=== PATIENT | female | born 1940 | race Caucasian/White ===

== ENCOUNTER 2017-07-10 10:47 | Emergency (ER) | payer MEDICARE, OTHER ==
[~2017-07-10] VITALS: Ht 162.6 cm; Wt 77.1 kg
[~2017-07-10 10:47] MED LIST: CIPROFLOXACIN250 MG PO; CITRACAL + D C1 EACH PO; MELOXICAM15 MG PO; MUCINEX600 MG PO; NAPROXEN250 MG PO; NORCO 5-325 TA1 EACH PO; PERCOCET 5-3251 EACH PO; VITAMIN D5000 UNIT PO
[2017-07-10] MEDS ORDERED: ZITHROMAX250 MG PO (10:59)
[2017-07-10] MEDS ORDERED: VENTOLIN HFA18 GM INH (12:53)
[2017-07-10] MEDS ORDERED: PREDNISONE20 MG PO (12:53)
== END 2017-07-10 17:40 | disposition home or self-care (01) ==
LOC: ED 10:47
DX: J44.1 Chronic obstructive pulmonary disease with (acute) exacerbation (principal); J44.0 Chronic obstructive pulmonary disease with (acute) lower respiratory infection; J20.9 Acute bronchitis, unspecified; E11.9 Type 2 diabetes mellitus without complications; F17.200 Nicotine dependence, unspecified, uncomplicated; Z90.710 Acquired absence of both cervix and uterus; Z90.89 Acquired absence of other organs; Z88.2 Allergy status to sulfonamides; Z88.5 Allergy status to narcotic agent
CPT/HCPCS: 71020; 94640; 99284; J7512

== ENCOUNTER 2021-12-28 14:59 | Emergency (ER) | payer MEDICARE, OTHER ==
[~2021-12-28] VITALS: Ht 162.6 cm; Wt 77.1 kg
[~2021-12-28 14:59] MED LIST changes: +PREDNISONE20 MG PO; +VENTOLIN HFA18 GM INH; +ZITHROMAX250 MG PO
[2021-12-28] MEDS ORDERED: HYDROCODON-ACE1 EA10 PO (17:52)
[2021-12-28] MEDS ORDERED: ONDANSETRON ODT8 MG PO (18:00)
== END 2021-12-28 18:14 | disposition home or self-care (01) ==
LOC: ED 14:59
DX: S42.201A Unspecified fracture of upper end of right humerus, initial encounter for closed fracture (principal); E11.9 Type 2 diabetes mellitus without complications; M19.90 Unspecified osteoarthritis, unspecified site; M81.0 Age-related osteoporosis without current pathological fracture; J44.9 Chronic obstructive pulmonary disease, unspecified; F17.200 Nicotine dependence, unspecified, uncomplicated; Z88.2 Allergy status to sulfonamides; Z88.5 Allergy status to narcotic agent; Z88.8 Allergy status to other drugs, medicaments and biological substances; W18.30XA Fall on same level, unspecified, initial encounter
CPT/HCPCS: 73060; 73080; 96374; 99283-25; A9270; J3010

== ENCOUNTER 2023-05-05 19:26 | Emergency (ER) | payer MEDICARE, OTHER ==
[~2023-05-05] VITALS: Ht 162.6 cm; Wt 88.0 kg
[~2023-05-05 19:26] MED LIST changes: +AMOXICILLIN875 MG PO; +ASPIR-TRIN325 MG PO; +DOXYCYCLINE HY100 MG PO; +HYDROCODON-ACE1 EA10 PO; +JARDIANCE10 MG PO; +METHOCARBAMOL500 MG PO; +MULTI VITAMIN1 EACH PO; +ONDANSETRON ODT8 MG PO; +TRAMADOL HCL50 MG PO; +TYLENOL325 M1 PO
--- OUTSIDE RECORDS SUMMARY | 2023-05-05 19:28 | XMS ---
PreManage Notification: FABIAN RIOS Security Real Estate Administrator Events No recent Security Events currently on file CRITERIA MET - [place] - [facility] - 2 Visits in 30 Days CARE PROVIDERS -Ayo- Dentist: Information Systems Manager [facility] PHONE: [phone] Lu Ritter Jewel Hole Gauger/Workforce Planning Analyst 01/08/2023-Current PHONE: [phone] Basilio has no Care Guidelines for this patient. ERosie VISIT COUNT (12 MO.) [address] [place] [address] TOTAL 3 NOTE: Visits indicate total known visits. ED/UCC VISIT TRACKING (12 MO.) 05/05/2023 19:26 [facility] [place] TYPE: Emergency COMPLAINT: - WEAKNESS 04/28/2023 19:44 [facility] [place] TYPE: Emergency COMPLAINT: - BACK PAIN/ NO INJ DIAGNOSES: - Allergy status to narcotic agent - Allergy status to other drugs, medicaments and biological substances - Allergy status to sulfonamides - Chronic obstructive pulmonary disease, unspecified - Exposure to other specified factors, initial encounter - rodent exterminator (current) use of oral hypoglycemic drugs - Low back pain, unspecified - Nicotine dependence, unspecified, uncomplicated - Other medical terminologist (current) drug therapy - Strain of muscle, fascia and tendon of lower back, initial encounter - Type 2 diabetes mellitus without complications 04/07/2023 13:49 [facility] [place] TYPE: Emergency COMPLAINT: - SWOLLEN LEGS INPATIENT VISIT TRACKING (12 MO.) 04/07/2023 13:50 [facility] [place] TYPE: Observation COMPLAINT: - CELLULITIS DIAGNOSES: - Cellulitis of left lower limb - Cellulitis of right lower limb - Chronic obstructive pulmonary disease, unspecified - 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 - Non-pressure chronic ulcer of other part of right lower leg with unspecified severity - Other muscle spasm - Tobacco use - Type 2 diabetes mellitus without complications - 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
[2023-05-05 21:45] VITALS: BP 137/87
== END 2023-05-05 21:45 | disposition home or self-care (01) ==
LOC: ED 19:26
DX: M62.830 Muscle spasm of back (principal); G89.29 Other chronic pain; E11.9 Type 2 diabetes mellitus without complications; J44.9 Chronic obstructive pulmonary disease, unspecified; F17.200 Nicotine dependence, unspecified, uncomplicated; Z88.2 Allergy status to sulfonamides; Z88.5 Allergy status to narcotic agent; Z88.6 Allergy status to analgesic agent; Z79.84 Long term (current) use of oral hypoglycemic drugs; Z79.899 Other long term (current) drug therapy
CPT/HCPCS: 99283; A9270

== ENCOUNTER 2023-07-22 21:59 | Emergency (ER) | payer MEDICARE, OTHER ==
[~2023-07-22] VITALS: Ht 162.6 cm; Wt 88.0 kg
--- OUTSIDE RECORDS SUMMARY | 2023-07-22 22:01 | XMS ---
PreManage Notification: FABIAN RIOS Security Instrument Worker Events No recent Security Events currently on file CRITERIA MET - LEE CARE PROVIDERS Lu Ritter Human Service Coordinator/Mixing Plant Operator 01/08/2023-Current PHONE: [phone] -Ayo- Dentist: Industrial Hygienist [facility] PHONE: [phone] Basilio has no Care Guidelines for this patient. ERosie VISIT COUNT (12 MO.) Nidia Mckeon TOTAL 4 NOTE: Visits indicate total known visits. ED/UCC VISIT TRACKING (12 MO.) 07/22/2023 21:59 [facility] [place] TYPE: Emergency COMPLAINT: - DIFFICULTY BREATHING 05/05/2023 19:26 [facility] [place] TYPE: Emergency COMPLAINT: - WEAKNESS DIAGNOSES: - Allergy status to analgesic agent - Allergy status to narcotic agent - Allergy status to sulfonamides - Chronic obstructive pulmonary disease, unspecified - alf (current) use of oral hypoglycemic drugs - Low back pain, unspecified - Muscle spasm of back - Nicotine dependence, unspecified, uncomplicated - Other chronic pain - Other half-way (current) drug therapy - Type 2 diabetes mellitus without complications 04/28/2023 19:44 [facility] [place] TYPE: Emergency COMPLAINT: - BACK PAIN/ NO INJ DIAGNOSES: - Allergy status to narcotic agent - Allergy status to other drugs, medicaments and biological substances - Allergy status to sulfonamides - Chronic obstructive pulmonary disease, unspecified - Exposure to other specified factors, initial encounter - alf (current) use of oral hypoglycemic drugs - Low back pain, unspecified - Nicotine dependence, unspecified, uncomplicated - Other exterminator helper termite (current) drug therapy - Strain of muscle, [...] lower extremity with ulcer of unspecified site [email or web address]
[2023-07-22 22:17] LABS: PH, VENOUS 7.325 (7.31-7.41)
[2023-07-22 22:32] LABS: BASOPHILS 0.1 % (0-2); EOSINOPHILS 0.1 % (0-6); HEMATOCRIT 61.7 % (35.0-50.0); LYMPHOCYTES 5.7 % (24-44); MCH 31.5 (27-36); MCV 95.4 fl (81-99); MONOCYTES 4.9 % (0-12); NEUTROPHILS 89.2 % (39-80); PLATELET COUNT 115 K/uL (140-440); RBC 6.46 M/ul (4.3-5.7); RDW 15.3 (10.5-15.0)
[2023-07-22 23:01] LABS: ALBUMIN 3.5 g/dL (3.4-5.0); ALBUMIN/GLOBULIN RATIO 0.83 (1.1-2.4); ANION GAP 18.4 (7-21); BILIRUBIN, TOTAL 0.6 ng/dL (0.2-1.0); BUN/CREATININE RATIO 22.03 (6.0-28.6); CREATININE, SERUM 1.18 mg/dL (0.55-1.02); MAGNESIUM 2.2 mg/dL (1.8-2.4); POTASSIUM 4.4 mmol/L (3.5-5.1); PROTEIN, TOTAL 7.7 g/dL (6.4-8.2)
[2023-07-22 23:04] LABS: HEMOGLOBIN 20.3 g/dL (12.0-18.0)
[2023-07-22 23:16] LABS: INFLUENZA B NAA NEGATIVE (NEGATIVE); RESPIRATORY SYNCYTIAL VIR NAA NEGATIVE (NEGATIVE)
[2023-07-23 00:29] LABS: LACTIC ACID, BLOOD 2.6 mmol/L (0.4-2.0)
[2023-07-23 02:51] VITALS: BP 122/80
--- NOTE | 2023-07-23 06:03 | EKG ---
[facility] [address] [facility] [place] [address] Signed Sinus tachycardia Right bundle branch block Left posterior fascicular block Bifascicular block Cannot rule out Inferior infarct , age undetermined Abnormal ECG compared to 04/07/23, rbbb and lpfb now present Confirmed by HARDY RIZVI MD ([id number]) on 07/23/2023 6:03:00 AM Electronically Signed By: HARDY RIZVI 07/23/23 0603 PATIENT NAME: FABIAN RIOS rPiya Electrocardiogram DATE OF : 42 PHYSICIAN: HARDY RIZVI REPORT #: [id number] REPORT IS CONFIDENTIAL AND NOT TO BE RELEASED WITHOUT AUTHORIZATION
== END 2023-07-23 02:51 | disposition short-term general hospital (02) ==
LOC: ED 21:59
PROVIDERS: Emergency Medicine
DX: I26.92 Saddle embolus of pulmonary artery without acute cor pulmonale (principal); J44.9 Chronic obstructive pulmonary disease, unspecified; E11.9 Type 2 diabetes mellitus without complications; F17.200 Nicotine dependence, unspecified, uncomplicated; Z88.2 Allergy status to sulfonamides; Z88.5 Allergy status to narcotic agent; Z88.8 Allergy status to other drugs, medicaments and biological substances; Z79.899 Other long term (current) drug therapy; Z20.822 Contact with and (suspected) exposure to COVID-19; Z66 Do not resuscitate
CPT/HCPCS: 36415; 71045; 71260; 80053; 82803; 83605; 83735; 83880; 84484; 85025; 85060; 85379; 87502; 93005; 93010; 94644; 99285-25; J1650; J1956; J2930; Q9967; U0002

== ENCOUNTER 2023-09-10 17:06 | Emergency (ER) | payer MEDICARE, OTHER ==
[~2023-09-10] VITALS: Ht 162.6 cm; Wt 96.6 kg
[~2023-09-10 17:06] MED LIST changes: +ELIQUIS5 MG PO; +INCRUSE ELLI62.5 MCG INH; +SYMBICORT 16010.2 GM INH
--- OUTSIDE RECORDS SUMMARY | 2023-09-10 17:08 | XMS ---
PreManage Notification: FABIAN RIOS Security Foamite Mixer Events No recent Security Events currently on file CRITERIA MET - 6 ED Visits in 6 Months - [facility] CARE PROVIDERS Lu Ritter Dust Mill Operator/Health Care Manager 01/08/2023-Current PHONE: [phone] -, Ayo- Dentist: Sergeant Of Corrections [facility] PHONE: [phone] Basilio has no Care Guidelines for this patient. ERosie VISIT COUNT (12 MO.) [address] [address] [place] [address] TOTAL 7 NOTE: Visits indicate total known visits. ED/UCC VISIT TRACKING (12 MO.) 09/10/2023 17:06 [facility] [place] TYPE: Emergency COMPLAINT: - CHEST PAIN 08/03/2023 09:47 [facility] [place] TYPE: Emergency COMPLAINT: - CHEST PAIN, SOB DIAGNOSES: - Allergy status to narcotic agent - Allergy status to sulfonamides - Chest pain, unspecified - Chronic obstructive pulmonary disease, unspecified - middle or intermediate school principal (current) use of anticoagulants - Nicotine dependence, unspecified, uncomplicated - Other middle or intermediate school principal (current) drug therapy - Other pulmonary embolism without acute cor pulmonale - Pleurodynia - Type 2 diabetes mellitus without complications 07/23/2023 03:25 [facility] TYPE: Emergency DIAGNOSES: - Acute respiratory failure with hypoxia - Chest pain, unspecified - Chronic obstructive pulmonary disease with (acute) exacerbation - Do not resuscitate - Other acute kidney failure - Other forms of dyspnea - Other specified abnormal findings of blood chemistry - Saddle embolus of pulmonary artery with acute cor pulmonale - Saddle embolus of pulmonary artery without acute cor pulmonale - Secondary polycythemia - Thrombocytopenia, unspecified - Type 2 diabetes mellitus with hyperglycemia - Saddle PE - Shortness of Breath 07/22/2023 21:59 [facility] [place] TYPE: Emergency COMPLAINT: - DIFFICULTY BREATHING DIAGNOSES: - Allergy status to narcotic agent - Allergy status to other drugs, medicaments and biological substances - Allergy status to sulfonamides - Chronic obstructive pulmonary disease, unspecified - Contact with and (suspected) exposure to COVID-19 - Do not resuscitate - Nicotine dependence, unspecified, uncomplicated - Other half-way (current) drug therapy - Saddle embolus of pulmonary artery without acute cor pulmonale - Shortness of breath - Type 2 diabetes mellitus without complications 05/05/2023 19:26 [facility] [place] TYPE: Emergency COMPLAINT: - WEAKNESS DIAGNOSES: - Allergy status to analgesic agent - Allergy status to narcotic agent - Allergy status to sulfonamides - Chronic obstructive pulmonary disease, unspecified - middle or intermediate school principal (current) use of oral hypoglycemic drugs - [...] to other specified factors, initial encounter - middle or intermediate school principal (current) use of oral hypoglycemic drugs - Low back pain, unspecified - Nicotine dependence, unspecified, uncomplicated - Other half-way (current) drug therapy - Strain of muscle, fascia and tendon of lower back, initial encounter - Type 2 diabetes mellitus without complications 04/07/2023 13:49 [facility] [place] TYPE: Emergency COMPLAINT: - SWOLLEN LEGS INPATIENT VISIT TRACKING ( MO.) 07/23/2023 03:25 [facility] TYPE: Internal Medicine DIAGNOSES: - Acute respiratory failure with hypoxia - Chest pain, unspecified - Chronic obstructive pulmonary disease with (acute) exacerbation - Do not resuscitate - Other acute kidney failure - Other forms of dyspnea - Other specified abnormal findings of blood chemistry - Saddle embolus of pulmonary artery with acute cor pulmonale - Saddle embolus of pulmonary artery without acute cor pulmonale - Secondary polycythemia - Thrombocytopenia, unspecified - Type 2 diabetes mellitus with hyperglycemia 04/07/2023 13:50 [facility] TYPE: Observation COMPLAINT: - CELLULITIS DIAGNOSES: - [...] lower extremity with ulcer of unspecified site [email or web address]
[2023-09-10 18:35] LABS: BASOPHILS 0.6 % (0-2); HEMATOCRIT 49.2 % (35.0-50.0); HEMOGLOBIN 16.3 g/dL (12.0-18.0); LYMPHOCYTES 36.3 % (24-44); MCHC 33.2 g/dl (30-36); MCV 93.6 fl (81-99); MONOCYTES 5.8 % (0-12); NEUTROPHILS 56.3 % (39-80); PLATELET COUNT 192 K/uL (140-440); RBC 5.25 M/ul (4.3-5.7)
[2023-09-10 18:53] LABS: ALBUMIN 3.2 g/dL (3.4-5.0); ALBUMIN/GLOBULIN RATIO 0.89 (1.1-2.4); BILIRUBIN, TOTAL 0.3 ng/dL (0.2-1.0); BUN/CREATININE RATIO 16.39 (6.0-28.6); CALCIUM 8.8 mg/dL (8.5-10.1); CREATININE, SERUM 1.22 mg/dL (0.55-1.02); PROTEIN, TOTAL 6.8 g/dL (6.4-8.2)
[2023-09-10 20:38] VITALS: BP 106/87
--- NOTE | 2023-09-10 22:25 | EKG ---
[facility] [address] [facility] [place] [address] Signed Sinus tachycardia Right bundle branch block Abnormal ECG When compared with ECG of 03-AUG-2023 10:28, No significant change was found Confirmed by Arnulfo Ochoa MD () on 09/10/2023 10:25:36 PM Electronically Signed By: ARNULFO OCHOA MD 09/10/232224 PATIENT NAME: FABIAN RIOS Electrocardiogram DATE OF : 42 PHYSICIAN: ARNULFO OCHOA MD REPORT #: [id number] REPORT IS CONFIDENTIAL AND NOT TO BE RELEASED WITHOUT AUTHORIZATION
== END 2023-09-10 20:38 | disposition home or self-care (01) ==
LOC: ED 17:06
PROVIDERS: Emergency Medicine
DX: R07.89 Other chest pain (principal); J44.9 Chronic obstructive pulmonary disease, unspecified; E11.9 Type 2 diabetes mellitus without complications; F17.200 Nicotine dependence, unspecified, uncomplicated; Z88.2 Allergy status to sulfonamides; Z88.5 Allergy status to narcotic agent; Z88.8 Allergy status to other drugs, medicaments and biological substances; Z79.01 Long term (current) use of anticoagulants; Z79.899 Other long term (current) drug therapy
CPT/HCPCS: 36415; 71045; 80053; 84484; 85025; 85379; 93005; 93010

== ENCOUNTER 2023-10-22 00:57 | Emergency (ER) | payer MEDICARE, OTHER ==
[~2023-10-22] VITALS: Ht 162.6 cm; Wt 84.6 kg
--- NOTE | ~2023-10-22 | EKG ---
[facility] [address] [facility] [place], [place] [address] Draft EK completed, results pending confirmation PATIENT NAME: FABIAN RIOS Electrocardiogram DATE OF : 42 PHYSICIAN: PRELIMINARY REPORT #: [id number] REPORT IS CONFIDENTIAL AND NOT TO BE RELEASED WITHOUT AUTHORIZATION
--- OUTSIDE RECORDS SUMMARY | 2023-10-22 01:00 | XMS ---
PreManage Notification: FABIAN RIOS Security Estimator Project Manager Events No recent Security Events currently on file CRITERIA MET - 6 ED Visits in 6 Months - [facility] - 2 Visits in 30 Days CARE PROVIDERS Lu Ritter Derrick Barge Operator/Medical Assistant Dermatology 10/10/2023-Current PHONE: [phone] -Ayo- Dentist: Coding Assistant [facility] PHONE: [phone] [place] PRIMARY Clinic/Center: Primary [facility] PHONE: [phone] Basilio has no Care Guidelines for this patient. E.D. VISIT COUNT (12 MO.) 9 [facility] TOTAL 10 NOTE: Visits indicate total known visits. ED/UCC VISIT TRACKING (12 MO.) 10/22/2023 00:58 [facility] [place] TYPE: Emergency COMPLAINT: - BACK PAIN 10/19/2023 01:09 [facility] [place] TYPE: Emergency COMPLAINT: - SOB DIAGNOSES: - Allergy status to narcotic agent - Allergy status to other drugs, medicaments and biological substances - Allergy status to sulfonamides - Chronic obstructive pulmonary disease with (acute) exacerbation - Exposure to other specified factors, initial encounter - [facility] (current) use of anticoagulants - Nicotine dependence, unspecified, uncomplicated - Other correction (current) drug therapy - Shortness of breath - Strain of muscle, fascia and tendon of lower back, initial encounter - Type 2 diabetes mellitus without complications 10/18/2023 05:49 [facility] [place] TYPE: Emergency COMPLAINT: - SOB DIAGNOSES: - Allergy status to narcotic agent - Allergy status to sulfonamides - Chronic obstructive pulmonary disease, unspecified - Exposure to other specified factors, initial encounter - extermination inspector (current) use of anticoagulants - [facility] (current) use of oral hypoglycemic drugs - Nicotine dependence, unspecified, uncomplicated - Other correction (current) drug therapy - Shortness of breath - Sprain of ligaments of lumbar spine, initial encounter - Type 2 diabetes mellitus without complications 09/10/2023 17:06 [facility] TYPE: Emergency COMPLAINT: - CHEST PAIN DIAGNOSES: - Allergy status to narcotic agent - Allergy status to other drugs, medicaments and biological substances - Allergy status to sulfonamides - Chest pain, unspecified - Chronic obstructive pulmonary disease, unspecified - [facility] (current) use of anticoagulants - Nicotine dependence, unspecified, uncomplicated - Other chest pain - Other correction (current) drug therapy - Type 2 diabetes mellitus without complications 08/03/2023 09:47 [facility] [place] TYPE: Emergency COMPLAINT: - CHEST PAIN, SOB DIAGNOSES: - Allergy status to narcotic agent - Allergy status to sulfonamides - Chest pain, unspecified - Chronic obstructive pulmonary disease, unspecified - extermination inspector (current) use of anticoagulants - Nicotine dependence, unspecified, uncomplicated - Other exterminator termite (current) drug therapy - Other pulmonary embolism without acute cor pulmonale - Pleurodynia - Type 2 diabetes mellitus without complications 07/23/2023 03:25 [facility] TYPE: Emergency DIAGNOSES: - Acute respiratory [...] Nicotine dependence, unspecified, uncomplicated - Other exterminator termite (current) drug therapy - Saddle embolus of pulmonary artery without acute cor pulmonale - Shortness of breath - Type 2 diabetes mellitus without complications 05/05/2023 19:26 [facility] [place] TYPE: Emergency COMPLAINT: - WEAKNESS DIAGNOSES: - Allergy status to analgesic agent - Allergy status to narcotic agent - Allergy status to sulfonamides - Chronic obstructive pulmonary disease, unspecified - extermination inspector (current) use of oral hypoglycemic drugs - Low back pain, unspecified - Muscle spasm of back - Nicotine dependence, unspecified, uncomplicated - Other chronic pain - Other correction (current) drug therapy - Type 2 diabetes mellitus without complications 04/28/2023 19:44 [facility] [place] TYPE: Emergency COMPLAINT: - BACK PAIN/ NO INJ DIAGNOSES: - Allergy status to narcotic agent - Allergy status to other drugs, medicaments and biological substances - Allergy status to sulfonamides - Chronic obstructive pulmonary disease, unspecified - Exposure to other specified factors, initial encounter - extermination inspector (current) use of oral hypoglycemic drugs - Low back pain, unspecified - Nicotine dependence, unspecified, uncomplicated - Other correction (current) drug therapy - Strain of muscle, fascia and tendon of lower back, initial encounter - Type 2 diabetes mellitus without complications 04/07/2023 13:49 [facility] [place] TYPE: Emergency COMPLAINT: - SWOLLEN LEGS INPATIENT VISIT TRACKING (12 MO.) 07/23/2023 03:25 [facility] TYPE: Internal Medicine DIAGNOSES: - Acute [...] 2 diabetes mellitus with hyperglycemia 04/07/2023 13:[address] [facility] [place] TYPE: Observation COMPLAINT: - CELLULITIS DIAGNOSES: [...] lower extremity with ulcer of unspecified site [email or web address]
[2023-10-22] MEDS ORDERED: CALCITONIN-SAL3.7 ML NAS (05:53)
[2023-10-22] MEDS ORDERED: LIDODERM1 EACH TOP (05:55)
[2023-10-22] MEDS ORDERED: HYDROCODON-ACE1 EA10 PO (06:03)
[2023-10-22] MEDS ORDERED: TRAMADOL HCL50 MG PO (06:04)
[2023-10-22 07:20] VITALS: BP 131/94
== END 2023-10-22 07:03 | disposition home or self-care (01) ==
LOC: ED 00:57
DX: M48.56XA Collapsed vertebra, not elsewhere classified, lumbar region, initial encounter for fracture (principal); M43.8X4 Other specified deforming dorsopathies, thoracic region; E11.9 Type 2 diabetes mellitus without complications; J44.9 Chronic obstructive pulmonary disease, unspecified
CPT/HCPCS: 36415; 71045; 72128; 72131; 80053; 83880; 84484; 85025; 85379; 93005; 93010; 96374; 96375; 99284-25; A9270; J1170; J1885; J2405

== ENCOUNTER 2024-03-08 15:30 | Emergency (ER) | payer MEDICARE, OTHER ==
[~2024-03-08] VITALS: Ht 162.6 cm; Wt 95.4 kg
[~2024-03-08 15:30] MED LIST changes: +CALCITONIN-SAL3.7 ML NAS; +IPRAT-ALBUT 0.5-3 ML INH; +LIDODERM1 EACH TOP
--- OUTSIDE RECORDS SUMMARY | 2024-03-08 15:33 | XMS ---
PreManage Notification: FABIAN RIOS Security R And D Lab Technician Events No recent Security Events currently on file CRITERIA MET - 6 ED Visits in 6 Months - [facility] - [facility] - 2 Visits in 30 Days CARE PROVIDERS Lu Ritter Ecotherapist/Z Os Mainframe Systems Programmer 02/08/2024-Current PHONE: [phone] -, [facility] Dentist: National Sales Consultant Current [place] PHONE: [phone] -Ayo- Dentist: National Sales Consultant Current [facility] PHONE: [phone] [facility] PRIMARY Clinic/Center: Primary Care [facility] PHONE: [phone] Basilio has no Care Guidelines for this patient. Annie VISIT COUNT (12 MO.) 11 BRANDI [facility]ter [facility] TOTAL 12 NOTE: Visits indicate total known visits. ED/UCC VISIT TRACKING (12 MO.) 03/08/2024 15:30 [facility] [place] TYPE: Emergency COMPLAINT: - DIZZNESS 02/26/2024 13:46 [facility] [place] TYPE: Emergency COMPLAINT: - SOB DIAGNOSES: - Age-related osteoporosis without current pathological fracture - Allergy status to analgesic agent - Allergy status to sulfonamides - Chronic obstructive pulmonary disease with (acute) exacerbation - watermelon inspector (current) use of anticoagulants - care home (current) use of inhaled steroids - watermelon inspector (current) use of oral hypoglycemic drugs - Nicotine dependence, unspecified, uncomplicated - Shortness of breath - Type 2 diabetes mellitus without complications - Unspecified osteoarthritis, unspecified site 10/22/2023 00:58 [facility] [place] TYPE: Emergency COMPLAINT: - BACK PAIN DIAGNOSES: - Allergy status to narcotic agent - Allergy status to other drugs, medicaments and biological substances - Allergy status to sulfonamides - Chronic obstructive pulmonary disease, unspecified - Collapsed vertebra, not elsewhere classified, lumbar region, initial encounter for fracture - Collapsed vertebra, not elsewhere classified, thoracic region, initial encounter for fracture - care home (current) use of anticoagulants - Nicotine dependence, unspecified, uncomplicated - Other skilled nursing (current) drug therapy - Other specified deforming dorsopathies, thoracic region - Pain in thoracic spine - Type 2 diabetes mellitus without complications 10/19/2023 01:09 [facility] [place] TYPE: Emergency COMPLAINT: - SOB DIAGNOSES: - Allergy status to narcotic agent - Allergy status to other drugs, medicaments and biological substances - Allergy status to sulfonamides - Chronic obstructive pulmonary disease with (acute) exacerbation - Exposure to other specified factors, initial encounter - care home (current) use of anticoagulants - Nicotine dependence, unspecified, uncomplicated - Other watermelon inspector (current) drug therapy - Shortness of breath - Strain of muscle, fascia and tendon of lower back, initial encounter - Type 2 diabetes mellitus without complications 10/18/2023 05:49 [facility] [place] TYPE: Emergency COMPLAINT: - SOB DIAGNOSES: - Allergy status to narcotic agent - Allergy status to sulfonamides - Chronic obstructive pulmonary disease, unspecified - Exposure to other specified factors, initial encounter - care home (current) use of anticoagulants - care home (current) use of oral hypoglycemic drugs - Nicotine dependence, unspecified, uncomplicated - Other watermelon inspector (current) drug therapy - Shortness of breath - Sprain of ligaments of lumbar spine, initial encounter - Type 2 diabetes mellitus without complications 09/10/2023 17:06 [facility] [place] TYPE: Emergency COMPLAINT: - CHEST PAIN DIAGNOSES: - Allergy status to narcotic agent - Allergy status to other drugs, medicaments and biological substances - Allergy status to sulfonamides - Chest pain, unspecified - Chronic obstructive pulmonary disease, unspecified - watermelon inspector (current) use of anticoagulants - Nicotine dependence, unspecified, uncomplicated - Other chest pain - Other skilled nursing (current) drug therapy - Type 2 diabetes mellitus without complications 08/03/2023 09:47 [facility] [place] TYPE: Emergency COMPLAINT: - CHEST PAIN, SOB DIAGNOSES: - Allergy status to narcotic agent - Allergy status to sulfonamides - Chest pain, unspecified - Chronic obstructive pulmonary disease, unspecified - watermelon inspector (current) use of anticoagulants - Nicotine dependence, unspecified, uncomplicated - Other skilled nursing (current) drug therapy - Other pulmonary embolism without acute cor pulmonale - Pleurodynia - Type 2 diabetes mellitus without complications 07/23/2023 03:25 [facility] TYPE: Emergency DIAGNOSES: - Acute respiratory failure [...] - Nicotine dependence, unspecified, uncomplicated - Other watermelon inspector (current) drug therapy - Saddle embolus of pulmonary artery without acute cor pulmonale - Shortness of breath - Type 2 diabetes mellitus without complications 05/05/2023 19:26 [facility] [place] TYPE: Emergency COMPLAINT: - WEAKNESS DIAGNOSES: - Allergy status to analgesic agent - Allergy status to narcotic agent - Allergy status to sulfonamides - Chronic obstructive pulmonary disease, unspecified - care home (current) use of oral hypoglycemic drugs - Low back pain, unspecified - Muscle spasm of back - Nicotine dependence, unspecified, uncomplicated - Other chronic pain - Other skilled nursing (current) drug therapy - Type 2 diabetes mellitus without complications 04/28/2023 19:44 [facility] [place] TYPE: Emergency COMPLAINT: - BACK PAIN/ NO INJ DIAGNOSES: - Allergy status to narcotic agent - Allergy status to other drugs, medicaments and biological substances - Allergy status to sulfonamides - Chronic obstructive pulmonary disease, unspecified - Exposure to other specified factors, initial encounter - care home (current) use of oral hypoglycemic drugs - Low back pain, unspecified - Nicotine dependence, unspecified, uncomplicated - Other skilled nursing (current) drug therapy - Strain of muscle, fascia and tendon of lower back, initial encounter - Type 2 diabetes mellitus without complications 04/07/2023 13:49 [facility] [place] TYPE: Emergency COMPLAINT: - SWOLLEN LEGS INPATIENT VISIT TRACKING (12 MO.) 07/23/2023 03:25 [facility] TYPE: Internal Medicine DIAGNOSES: - Acute respiratory [...] diabetes mellitus with hyperglycemia 04/07/2023 13:50 [facility] [place] TYPE: Observation [...] lower extremity with ulcer of unspecified site [email or web address]
[2024-03-08] MEDS ORDERED: SODIUM CHLORIDE 0.9% 1,000 ML IV ONE (16:00)
[2024-03-08] MEDS ORDERED: LORazepam 2 MG/ML VIAL IV ONE (16:00)
[2024-03-08] MEDS ORDERED: ondansetron HCL 4 MG/2 ML VIAL IV ONE (16:00)
[2024-03-08 16:47] LABS: BASOPHILS 0.6 % (0-2); EOSINOPHILS 1.4 % (0-6); HEMATOCRIT 57.7 % (35.0-50.0); HEMOGLOBIN 19.2 g/dL (12.0-18.0); LYMPHOCYTES 29.2 % (24-44); MCH 31.2 (27-36); MCHC 33.3 g/dl (30-36); MCV 93.8 fl (81-99); MONOCYTES 6.3 % (0-12); NEUTROPHILS 62.5 % (39-80); PLATELET COUNT 200 K/uL (140-440); RBC 6.15 M/ul (4.3-5.7); RDW 14.3 (10.5-15.0)
[2024-03-08 17:06] LABS: ALBUMIN 3.6 g/dL (3.4-5.0); ALBUMIN/GLOBULIN RATIO 0.9 (1.1-2.4); ANION GAP 13.2 (7-21); BILIRUBIN, TOTAL 0.6 ng/dL (0.2-1.0); BUN/CREATININE RATIO 16.5 (6.0-28.6); CALCIUM 9.1 mg/dL (8.5-10.1); CREATININE, SERUM 1.03 mg/dL (0.55-1.02); POTASSIUM 4.2 mmol/L (3.5-5.1); PROTEIN, TOTAL 7.6 g/dL (6.4-8.2)
[2024-03-08] MEDS ORDERED: ATIVAN0.5 MG PO (17:48)
[2024-03-08] MEDS ORDERED: ONDANSETRON ODT8 MG PO (17:48)
[2024-03-08 18:10] VITALS: BP 104/90
== END 2024-03-08 18:14 | disposition home or self-care (01) ==
LOC: ED 15:30
PROVIDERS: Emergency Medicine
DX: R42 Dizziness and giddiness (principal); D75.1 Secondary polycythemia; E11.9 Type 2 diabetes mellitus without complications; J44.9 Chronic obstructive pulmonary disease, unspecified; F17.200 Nicotine dependence, unspecified, uncomplicated; Z88.2 Allergy status to sulfonamides; Z88.5 Allergy status to narcotic agent; Z88.8 Allergy status to other drugs, medicaments and biological substances; Z79.899 Other long term (current) drug therapy
CPT/HCPCS: 36415; 70450; 80053; 85025; 96374; 96375; 99284-25; J2060; J2405; J7030

== ENCOUNTER 2024-07-17 10:38 | Emergency (ER) | payer MEDICARE, OTHER ==
[~2024-07-17] VITALS: Ht 162.6 cm; Wt 81.6 kg
[~2024-07-17 10:38] MED LIST changes: +ATIVAN0.5 MG PO
[2024-07-17 11:33] LABS: BASOPHILS 0.5 % (0-2); HEMOGLOBIN 18.1 g/dL (12.0-18.0); MCH 31.7 (27-36); MCHC 34.2 g/dl (30-36); MCV 92.7 fl (81-99); NEUTROPHILS 65.5 % (39-80); PLATELET COUNT 219 K/uL (140-440); RBC 5.72 M/ul (4.3-5.7); RDW 14.3 (10.5-15.0)
[2024-07-17 11:40] LABS: INR 1.02 (0.80-1.30)
[2024-07-17 11:48] LABS: ALBUMIN 3.4 g/dL (3.4-5.0); ALBUMIN/GLOBULIN RATIO 0.85 (1.1-2.4); ANION GAP 9.1 (7-21); BILIRUBIN, TOTAL 0.7 ng/dL (0.2-1.0); BUN/CREATININE RATIO 9.64 (6.0-28.6); CREATININE, SERUM 1.14 mg/dL (0.55-1.02); MAGNESIUM 2.2 mg/dL (1.8-2.4); POTASSIUM 4.1 mmol/L (3.5-5.1); PROTEIN, TOTAL 7.4 g/dL (6.4-8.2)
[2024-07-17 14:33] VITALS: BP 104/81
--- NOTE | 2024-07-18 15:50 | EKG ---
[facility] [address] [facility] [place] [address] Signed Sinus tachycardia Low voltage QRS Right bundle branch block Abnormal ECG When compared with ECG of 17-APR-2024 20:24, No significant change was found Confirmed by Ct Varela MD ([id number]) on 07/18/2024 3:49:59 PM Electronically Signed By: CT VARELA MD 07/18/24 1550 PATIENT NAME: FABIAN RIOS Electrocardiogram DATE OF : 42 PHYSICIAN: CT VARELA MD REPORT #: [id number] REPORT IS CONFIDENTIAL AND NOT TO BE RELEASED WITHOUT AUTHORIZATION
== END 2024-07-17 14:35 | disposition home or self-care (01) ==
LOC: ED 10:38
PROVIDERS: Emergency Medicine
DX: R07.9 Chest pain, unspecified (principal); J44.9 Chronic obstructive pulmonary disease, unspecified; E11.9 Type 2 diabetes mellitus without complications; F17.200 Nicotine dependence, unspecified, uncomplicated; Z86.711 Personal history of pulmonary embolism; Z79.01 Long term (current) use of anticoagulants; Z79.899 Other long term (current) drug therapy; Z88.2 Allergy status to sulfonamides; Z88.8 Allergy status to other drugs, medicaments and biological substances; Z88.5 Allergy status to narcotic agent
CPT/HCPCS: 36415; 71045; 80053; 83735; 84484; 85025; 85610; 93005; 93010; 99285-25

== ENCOUNTER 2024-11-29 11:01 | Inpatient (IN) | payer MEDICARE, OTHER ==
[~2024-11-29] VITALS: Ht 162.6 cm; Wt 84.3 kg
[~2024-11-29 11:01] MED LIST changes: +BREO ELLIPTA 51 EACH INH
[2024-11-29] MEDS ORDERED: SODIUM CHLORIDE 0.9% 1,000 ML IV PRN ×2 (11:45→14:45)
[2024-11-29] MEDS ORDERED: CEFTRIAXONE SODIUM 1 GM in SODIUM CHLORIDE 0.9% 100 ML IV ONE (11:45)
[2024-11-29 11:59] LABS: PH, VENOUS 7.33 (7.31-7.41)
[2024-11-29 12:01] LABS: BASOPHILS 0.1 % (0-2); EOSINOPHILS 0.2 % (0-6); HEMATOCRIT 53.9 % (35.0-50.0); HEMOGLOBIN 18.2 g/dL (12.0-18.0); LYMPHOCYTES 3.9 % (24-44); MCHC 33.7 g/dl (30-36); MONOCYTES 5.1 % (0-12); NEUTROPHILS 90.7 % (39-80); PLATELET COUNT 195 K/uL (140-440); RBC 5.86 M/ul (4.3-5.7); RDW 15.5 (10.5-15.0)
[2024-11-29 12:29] LABS: ACETAMINOPHEN 0 ug/mL (10-30); ALBUMIN 3.4 g/dL (3.4-5.0); ALBUMIN/GLOBULIN RATIO 0.77 (1.1-2.4); ALKALINE PHOSPHATASE 87 U/L (46-116); ALT (SGPT) 30 U/L (14-59); ANION GAP 14.4 (7-21); AST (SGOT) 65 U/L (15-37); BILIRUBIN, TOTAL 0.8 mg/dL (0.2-1.0); BUN/CREATININE RATIO 15.45 (6.0-28.6); CALCIUM 9.2 mg/dL (8.5-10.1); CARBON DIOXIDE 29 mmol/L (21-32); CHLORIDE 100 mmol/L (98-107); GLOMERULAR FILTRATION RATE,EST 50 mL/min (>60); POTASSIUM 4.4 mmol/L (3.5-5.1); PROTEIN, TOTAL 7.8 g/dL (6.4-8.2); SALICYLATE 1.1 mg/dL (2.8-20.0); UREA NITROGEN 17 mg/dL (7-18)
[2024-11-29 12:58] LABS: CORONAVIRUS COVID-19 AG NEGATIVE (NEGATIVE); INFLUENZA A AG NEGATIVE (NEGATIVE); INFLUENZA B AG NEGATIVE (NEGATIVE)
[2024-11-29 13:23] LABS: BILIRUBIN, URINE NEGATIVE (negative); BLOOD/HGB, URINE LARGE (Negative); KETONE, URINE SMALL (Negative); LEUK ESTERASE, URINE SMALL (negative); NITRITE, URINE NEGATIVE (negative)
[2024-11-29 13:28] LABS: CASTS, URINE NONE SEEN \\lpf; CRYSTALS, URINE NONE SEEN (0-1+); EPITHELIAL CELLS, URINE 0 /lpf (0-1+); RED BLOOD CELLS, URINE 0-1 /hpf (0-5); WHITE BLOOD CELLS, URINE >50 /HPF (0-5)
[2024-11-29 13:29] LABS: BACTERIA, URINE 3+ /hpf (negative); COLLECTION TYPE, URINE CATH; REFLEX CULTURE, URINE Yes (No)
[2024-11-29 13:41] LABS: AMPHETAMINES, URINE NEGATIVE (NEGATIVE); BARBITURATES, URINE NEGATIVE (NEGATIVE); BENZODIAZEPINE, URINE NEGATIVE (NEGATIVE); BUPRENORPHINE, URINE NEGATIVE (NEGATIVE); CANNABINOID, URINE NEGATIVE (NEGATIVE); COCAINE, URINE NEGATIVE (NEGATIVE); ECSTASY, URINE NEGATIVE (NEGATIVE); FENTANYL, URINE NEGATIVE (NEGATIVE); METHADONE, URINE NEGATIVE (NEGATIVE); OPIATES, URINE NEGATIVE (NEGATIVE); OXYCODONE, URINE NEGATIVE (NEGATIVE); PHENCYCLIDINE, URINE NEGATIVE (NEGATIVE)
--- NOTE | 2024-11-29 14:03 | EKG ---
[facility] [address] [facility] [place], [place] [address] Signed Sinus tachycardia Low voltage QRS Right bundle branch block Abnormal ECG When compared with ECG of 17-JUL-2024 10:50, No significant change was found Confirmed by Ct aVrela MD ([id number]) on 11/29/2024 2:03:45 PM Electronically Signed By: CT VARELA MD 11/29/24 1403 PATIENT NAME: FABIAN RIOS Electrocardiogram DATE OF : 42 PHYSICIAN: CT VARELA MD REPORT #: [id number] REPORT IS CONFIDENTIAL AND NOT TO BE RELEASED WITHOUT AUTHORIZATION
[2024-11-29] MEDS ORDERED: ALBUTEROL SULFATE 0.083% 3 ML VIAL INH ONE (14:15)
[2024-11-29] MEDS ORDERED: SODIUM CHLORIDE 0.9% 500 ML IV PRN (16:00)
[2024-11-29] MEDS ORDERED: NOREPINEPHRINE BITARTRATE 250 ML IV SCH (17:15)
[2024-11-29] MEDS ORDERED: DEXTROSE 50% 50 ML SYR IV PRN ×2 (17:45)
[2024-11-29] MEDS ORDERED: GLUCAGON,HUMAN RECOMBINANT 1 MG/ML VIAL SUB-Q PRN (17:45)
[2024-11-29] MEDS ORDERED: IBLOOD GLUCOSE TEST STRIP 1 EA TEST XX PRN (17:45)
[2024-11-29] MEDS ORDERED: DEXTROSE 5% 1,000 ML IV PRN (17:45)
[2024-11-29] MEDS ORDERED: PIPERACILLIN/TAZOBACTAM 3.375 GM in SODIUM CHLORIDE 0.9% 100 ML IV SCH (18:15)
[2024-11-29] MEDS ORDERED: LACTATED RINGER'S 1,000 ML IV ONE (18:15)
[2024-11-29 18:44] VITALS: BP 138/78
[2024-11-29] MEDS ORDERED: PIPERACILLIN/TAZOBACTAM 3.375 GM VIAL ONE (18:48)
[2024-11-29] MEDS ORDERED: ondansetron HCL 4 MG/2 ML VIAL IV PRN (19:15)
[2024-11-29] MEDS ORDERED: ACETAMINOPHEN 325 MG TAB PO PRN (19:15)
--- NOTE | 2024-11-29 19:17 | NUR ---
PATIENT TRANSFERED FROM ED TO CCU ROOM 127. PATIENT SKIN CHECKED AND PICTURES PLACED IN CHART. PATIENT ALERT AND UPDATED ON PLAN OF CARE. PER ED STAFF AND PROVIDER CENTRAL LINE IS OKAY FOR USE. PATIENT BOLUS STARTED AND ABX GIVEN. REPORT GIVEN TO CHARGE GANG WEIGHER RN. NOREPI GTT OFF AT THIS TIME.
[2024-11-29 19:30] VITALS: BP 106/83
--- NOTE | 2024-11-29 19:30 | NUR ---
HANDOFF REPORT RECEIVED FROM DAY SHIFT RN. PATIENT RESTING IN BED WATCHING TV. PROVIDED WITH SANDWICH BOX AND ICE WATER. NO FURTHER NEEDS AT THIS TIME. NO DISTRESS NOTED. CALL LIGHT IN REACH.
--- NOTE | 2024-11-29 19:53 | NUR ---
PER FABIAN...SHE HAS SMOKED APPROXIMATELY 2 PACKS OF CIGARETTES A DAY SINCE THE AGE OF 17 (+/-67 YEARS). SHE STATES THAT SHE DOES NOT WEAR OXYGEN AT HOME BUT FEELS THAT SHE NEEDS OXYGEN AT HOME.
[2024-11-29] MEDS ORDERED: ALBUTEROL/IPRATROPIUM 3 ML NEB INH SCH (20:00)
[2024-11-29] MEDS ORDERED: BUDESONIDE 0.5 MG/2 ML VIAL INH SCH (20:00)
--- NOTE | 2024-11-29 20:10 | NUR ---
patient assessment complete. patient on 2L NC, SPO2 93%. patient has occasional wet cough. patient lung sounds coarse throughout. patient is alert and oriented x4, answers questions and follows commands appropriately. Norepinephrine gtt remains off, blood pressures stable. 1L bolus complete. patient has ABX infusing per emar. patient right IJ WNL. patient denies any nausea or pain at this time. patient has pure wick in place. patient noted to have LE edema, legs elevated with pillow. patient noted to have dime sized blanchable pressure ulcer on right buttock, foam bordered dressing placed. patient also noted to have reddened areas underneath bilat breast folds. patient updated on plan of care for the night. no needs at this time. call light in reach.
[2024-11-29 20:15] VITALS: BP 131/57
[2024-11-29 21:00] VITALS: BP 111/61
[2024-11-29] MEDS ORDERED: IBLOOD GLUCOSE TEST STRIP 1 EA TEST XX SCH (21:00)
[2024-11-29] MEDS ORDERED: APIXABAN 5 MG TAB PO SCH (21:00)
[2024-11-29] MEDS ORDERED: INSULIN LISPRO 100 UNIT/ML ML SUB-Q SCH (21:00)
--- NOTE | 2024-11-29 21:35 | NUR ---
patient repositioned in bed. lights dimmed and TV turned off per request. no further needs at this time. call light in reach.
[2024-11-29 22:00] VITALS: BP 107/62
[2024-11-29] MEDS ORDERED: methylPREDNISolone SOD SUCC 40 MG/ML VIAL IV SCH (22:00)
--- NOTE | 2024-11-29 22:04 | NUR ---
PATIENT DESAT TO 85% ON 2L NC. PATIENT APPEARS TO BE SLEEPING SOUNDLY, EYES CLSOED AND MOUTH BREATHING. PATIENT WOKE WHEN RN IN ROOM. PLACED PATIENT ON 3L OXYMASK, PATIENT AGREEABLE TO THIS. DENIED OTHER NEEDS. CALL LIGHT IN REACH.
[2024-11-29 23:00] VITALS: BP 122/62
[2024-11-30] VITALS (15 sets, daily range): BP systolic 90–134; BP diastolic 41–83
[2024-11-30] MEDS ORDERED: ALBUTEROL SULFATE 0.083% 3 ML VIAL INH PRN (00:30)
--- NOTE | 2024-11-30 00:37 | NUR ---
PATIENT NOTED TO DESAT WITH SPO2 IN THE LOW 70'S. PATIENT ON 3L OXYMASK AND 2L NC. PATIENT SAT UP AND ENCOURAGED TO COUGH AND TAKE DEEP BREATHS. SPO2 RETURN TO 90'S. RT CALLED AND ASKED FOR PRN BREATHING TX. PATIENT STATES SHE FEELS SHORT OF BREATH ALL OF THE TIME. RT REMAINS AT BEDSIDE. CALL LIGHT IN REACH.
--- NOTE | 2024-11-30 00:40 | NUR ---
RT ADDED HUMIDIFICATION TO NASAL CANNULA AND STARTED FABIAN ON THE CORNET LEVEL 5 (10X AN HOUR WHILE AWAKE) TO HELP BREAK UP THE CONGESTION IN HER CHEST.
--- NOTE | 2024-11-30 02:00 | NUR ---
PATIENT RESTING IN BED WITH EYES CLOSED, RESPIRATIONS EVEN AND UNLABORED. PATIENT ON 2L NC AND 3L OXYMASK, SPO2 95%. PATIENT HAS NO NEEDS AT THIS TIME. CALL LIGHT IN REACH.
--- NOTE | 2024-11-30 02:15 | NUR ---
PATIENT USED CALL LIGHT REQUESTING SNACK, SNACK PROVIDED. PATIENT ASKS WHEN BREAKFAST IS AND ORIENTED TO TIME. PATIENT HAS NO FURTHER NEEDS AT THIS TIME. CALL LIGHT IN REACH.
--- NOTE | 2024-11-30 02:44 | NUR ---
FABIAN IS CURRENTLY ON A 3L NC W/HUMIDIFICATION AND A 2L OPEN OXY MASK BECAUSE SHE IS A MOUTH BREATHER WHEN SHE IS ASLEEP.
--- NOTE | 2024-11-30 04:00 | NUR ---
patient resting in bed with eyes closed, RR 23. no distress noted. patient vital signs stable. no needs at this time. call light in reach.
--- NOTE | 2024-11-30 04:42 | NUR ---
PATIENT ALERT, LAYING IN BED. PATIENT ORIENTED TO PERSON, PLACE, BUT NOT THE YEAR OR EVENT. PATIENT DENIES ANY CONCERNS. DENIES PAIN. VS STABLE. PATIENT DENIES NEED FOR BATHROOM OR WANTING ANY WATER AT THIS TIME. ALLOWED PATIENT TO REST. CALL LIGHT IN REACH. BED ALARM ACTIVE.
[2024-11-30 05:50] LABS: BASOPHILS 0.1 % (0-2); HEMATOCRIT 47.7 % (35.0-50.0); HEMOGLOBIN 15.5 g/dL (12.0-18.0); LYMPHOCYTES 4.5 % (24-44); MCH 30.4 (27-36); MCHC 32.5 g/dl (30-36); MCV 93.4 fl (81-99); MONOCYTES 1.2 % (0-12); NEUTROPHILS 94.2 % (39-80); PLATELET COUNT 173 K/uL (140-440); RBC 5.11 M/ul (4.3-5.7)
[2024-11-30] MEDS ORDERED: PIPERACILLIN/TAZOBACTAM 3.375 GM VIAL ONE ×3 (05:53→21:16)
[2024-11-30 06:00] LABS: ANION GAP 10.4 (7-21); BUN/CREATININE RATIO 10.86 (6.0-28.6); CALCIUM 8.2 mg/dL (8.5-10.1); CREATININE, SERUM 0.92 mg/dL (0.55-1.02); MAGNESIUM 1.8 mg/dL (1.8-2.4); POTASSIUM 4.4 mmol/L (3.5-5.1)
--- NOTE | 2024-11-30 06:45 | NUR ---
PATIENT SLOW TO WAKE UP THIS AM. DOCTOR DARREN CALLED AND UPDATED ON PATIENT. NEW ORDER RECEIVED VIA PHONE FOR ABG. PATIENT ALERT AND ORIENTED X4. PATIENT STATES SHE WAS IN DEEP SLEEP. PATIENT PURE WICK CHANGED AND NEW BRIEF PLACED. PATIENT PROVIDED WITH FRESH ICE WATER AND ASKS WHEN BREAKFAST IS, STATES SHE IS HUNGRY. PATIENT HAS NO FURTHER NEEDS AT THIS TIME. CALL LIGHT IN REACH.
[2024-11-30] MEDS ORDERED: BUDESONIDE 0.5 MG/2 ML VIAL INH SCH (08:00)
--- NOTE | 2024-11-30 08:06 | NUR ---
UR CLINICAL REVIEW: 2 [place] PEDRO, MEETS INPT FOR UTI, SEPSIS, COPD EXACERBATION. POSITIVE UA, HEARTRATE UP TO 120, RESP UP TO 28. LACTIC ACID 3.0. HYPOTENSIVE REQUIRING LEVOPHED MEDICARE INPT 11/29/24 @ 1632 ORDER MATCHES REG NO AUTH REQUIRED PER MEDICARE RULES DC TO HOME WHEN MEDICALLY CLEARED
--- NOTE | 2024-11-30 08:30 | NUR ---
AM ASSESSMENT COMPLETE - PT ALERT AND ORIENTED. SP02 STABLE ON 2L VIA NC, RT JUST COMPLETED RT TREATMENT. PT STATES HER SOB IS IMPROVING AND SHE "FEELS BETTER" TODAY. OCCASIONAL HARSH COUGH NOTED, PT STATES NON PRODUCTIVE. RIGHT LOWER LOBE NOTED WITH CRACKLES/COURSE CONSISTANT WITH RESIDUAL PE NOTED ON CT. PT ASSISTED UP TO BED SIDE CHAIR USING FWW - PT WEAK BUT DEMONSTRATES APPROPRIATE USE OF EQUIPMENT. 3 UNITS [facility] FOR SS COVERAGE. CALL LIGHT IN REACH.
[2024-11-30] MEDS ORDERED: METRONIDAZOLE45 GM TOP ×2 (08:58)
--- NOTE | 2024-11-30 08:59 | NUR ---
MED REC COMPLETE
[2024-11-30] MEDS ORDERED: MICONAZOLE NITRATE 1 EA BTL TOP SCH (09:00)
[2024-11-30] MEDS ORDERED: LACTATED RINGER'S 1,000 ML IV ONE (09:00)
--- NOTE | 2024-11-30 09:48 | NUR ---
PHYSICAL THERAPY IN ROOM TO GIUSEPPE PT
--- NOTE | 2024-11-30 10:00 | NUR ---
INTO SEE PATIENT. PERSONAL INFORMATION REVIEWED. UNABLE TO GIVE ME AN ACCURATE PHONE NUMBER FOR HER SELF AND PERSON OF CONTACT. PATIENT LIVES AT HOME WITH ONE OF HER CAREGIVERS NELLI DIAZ AND STATES HER "IDIOT SON". SHE ALSO HAS TWO OTHER CAREGIVERS. PATIENT LIVES IN HOUSE 2 STEPS TO GET INTO. SAYS CAREGIVERS ARE ABLE TO HELP HER WITH STEPS. SHE USES A "MATHEW" OF A WALKER. DENIES A CANE, OXYGEN OR CPAP. HAS A WHEELCHAIR AVAILABLE. PATIENT DOES NOT DRIVE. USES MEDICAL TRANSPORT FOR APPOINTMENTS. ALSO HAS CAREGIVERS TO HELP. STATES SHE MAY NEED A WHEELCHAIR VAN TO GET HOME. ASSURED HER WE CAN ARRANGE THAT. PATIENT DENIES DIFFCULTY PAYING UTILITIES OR OBTAINING FOOD. CAREGIVERS DO GROCERY SHOPPING.
--- NOTE | 2024-11-30 10:32 | NUR ---
LR BOLUS COMPLETE - PT HAS HAD MINIMAL URINE OUTPUT SO FAR THIS SHIFT - PUREWIK IN PLACE AND VERIFIED, ATTENDS DRY. CALL LIGHT IN REACH. PT DENIES NEEDS AT THIS TIME, WARM BLANKET PROVIDED.
--- NOTE | 2024-11-30 11:17 | NUR ---
VISITED DURING SPIRITUAL CARE ROUNDS. PT EXPRESSED GRATITUDE FOR CARE RECEIVED, INSPIRATION TO ASK FOR HELP WHEN NEEDED. LICENSING MANAGER PROVIDED SUPPORTIVE PRESENCE, HOSPITALITY, PRAYER.
--- NOTE | 2024-11-30 11:22 | NUR ---
PT REPOSISTIONED IN CHAIR PER REQUEST
[2024-11-30] MEDS ORDERED: ALBUTEROL/IPRATROPIUM 3 ML NEB INH SCH (12:00)
[2024-11-30] MEDS ORDERED: PHARMACY RENAL DOSE ADJUSTMENT 1 DOSE MISC PO SCH (12:00)
--- NOTE | 2024-11-30 12:12 | NUR ---
PT IN CHAIR TO EAT LUNCH - REPOSISTIONED WITH LEGS DOWN. 5 UNITS SS COVERAGE ADMINISTERED. CALL LIGHT IN REACH.
--- NOTE | 2024-11-30 13:00 | NUR ---
PT BACK TO BED AFTER LUNCH - COMPLETE BED BATH PROVIDED, LOTION TO ARMS AND LEGS. DESITIN POWDER TO UNDER BREASTS AND PANIS AND JILL AREA. DECUB ON RIGHT BUTTOCKS VISUALIZED, BLANCHABLE AND NOT OPEN WITH ALYVN COVERAGE. PT STATES THIS IS CHRONIC AND SHE HAS BEEN UNABLE TO HEAL IT AT HOME. CLEAN GOWN AND LINENS.
--- NOTE | 2024-11-30 13:56 | NUR ---
PT ARRIVES IN HOSPITAL BED FROM CCU, REPORT RECEIVED FROM SHOAIB ANG RN. VS TAKEN.
--- NOTE | 2024-11-30 14:00 | NUR ---
PT TRANSFERED TO MS ROOM 119 BY THIS RN - REPORT GIVEN TO KIRAN AT BEDSIDE WITH CAREGIVER AND PT PRESENT. ALL QUESTIONS ANSWERED.
--- NOTE | 2024-11-30 14:51 | NUR ---
ASSESSMENT COMPLETE. PT RESTING IN BED WITH HOB ELEVATED WATCHING TELEVISION AND EATING SNACKS AT THIS TIME. IV IN L AC FLUSHES WNL. R TRIPLE LUMEN IJ HAS BLOOD RETURN TO ALL THREE LUMENS, ALL THREE LUMENS FLUSHES WITH 10ML NS AND LOCKED AT THIS TIME. PT REPORTS NO DISCOMFORT AT EITHER SITES. PT LUNG SOUNDS CLEAR TO DEZ, DIMINISHED IN THE LLL, CLEAR IN RUL, DIMINISHED AND COARSE IN THE RLL. PT REPORTS NO SOB OR CHEST DISCOMFORT AT THIS TIME. 2LNC IN PLACE, PT SPO2 94%. TRACE EDEMA TO BILAT ANKLES, PT REPORTS THIS IS CHRONIC. PT IS MILDLY TREMULOUS IN HANDS, SHE REPORTS THIS IS D/T THE NEBULIZERS AND MEDICATIONS SHE IS RECEIVING AND SHE IS NOT CONCERNED ABOUT IT. PT HAS FRESH POWDER TO BILAT UNDER BREASTS AND PANNUS. PUREWICK IS IN PLACE WITH BRIEF IN PLACE, DRAINING CLEAR YELLOW URINE. ALLEVYN NOTED TO R BUTTOCK. PT HAS ACAPELLA AT BEDSIDE AND ENDORSES SHE WILL USE IT RIGHT AFTER SHE FINISHES HER SNACK. PT HAS NO OTHER REQUESTS AT THIS TIME, CALL LIGHT IN REACH.
--- NOTE | 2024-11-30 15:35 | NUR ---
IN pt ROOM FOR MEDICATION ADMINISTRATION. LINE FLUSHED WNL, BRISK BLOOD RETURN. IV ANTIBIOTIC INFUSING WNL RIGHT IJ. pt COMPLAINS OF THROAT PAIN INITIALLY. REFUSES PRN TYLENOL, STATES "IT JUST WENT AWAY SUDDENLY". RT IN ROOM, pt USING ACAPELLA.
--- NOTE | 2024-11-30 16:07 | NUR ---
PT VISITING WITH HER HOME CAREGIVER AT THIS TIME. IV ABX INFUSING WNL. NO REQUESTS, CALL LIGHT IN REACH.
--- NOTE | 2024-11-30 19:42 | NUR ---
GOT REPORT FROM DAY SHIFT NURSE.
--- NOTE | 2024-11-30 19:49 | NUR ---
FABIAN GETS SOB WHEN TALKING WHILE ON THE NEBULIZER. CORNET LEVEL 5 DONE W/O DIFFICULTY. FABIAN IS LIKELY GOING TO NEED HOME OXYGEN. SHE STATES THAT SHE HAS A NEBULIZER AT HOME BUT NO MEDICATIONS, THEREFORE SHE WILL NEED PRESCRIPTIONS FOR DUONEB AND PULMICORT PRIOR TO DISCHARGE.
--- NOTE | 2024-11-30 20:27 | NUR ---
EXERCISER OBTAINED VITALS, NO NEW I&O AT THIS TIME. PT STATES NO NEEDS AND CALL LIGHT WITHIN REACH.
--- NOTE | 2024-11-30 20:48 | NUR ---
INTO DO PATIENTS ASSESSMENT. PT CURRENTLY ON 2L NC. WATCHING TV. DENIES PAIN, PATIENT IV ANTIBIOTIC FINISHED AND IJ FLUSHED. PATIENT PUREWICK IN PLACE. PATIENT HAS WATER AND SNACKS AT BED SIDE. CALL LIGHT ON, BED IN LOW POSITION. CALL LIGHT WITHIN REACH.
--- NOTE | 2024-11-30 21:01 | NUR ---
PATIENT UP TO THE BEDSIDE COMMODE TO HAVE A BOWEL MOVEMENT. 2PA. PATIENT GOT DIZZY WHEN SHE GOT UP. BED CLEANED UP. NEW PUREWICK PLACED. ANTIFUNGAL POWDER APPLIED.
--- NOTE | 2024-11-30 22:39 | NUR ---
PATIENT WATCHING TV DRINKING HER WATER. LAST OF EVENING MEDICATIONS GIVEN. IV ANTIBIOTICS RUNNING. BED ALARM ON.
--- NOTE | 2024-11-30 22:46 | NUR ---
PATIENTS RIGHT AC IV DRESSING CLEANED UP AND NEW TAPE PLACED. TURNED LIGHTS DOWN, PATIENT IS STILL WATCHING TV.
[2024-12-01] VITALS (8 sets, daily range): BP systolic 112–145; BP diastolic 51–87
--- NOTE | 2024-12-01 01:45 | NUR ---
AWAKE, ALERT AND ORIENTED, NO C/O PAIN. ON O2 NOT CHRONIC, LUNGS CLEAR DIM AT BASES, NO COUGH AT THIS TIME. AND SOFT, LBM 11/30. GENERALIZED EDEMA,SL RAC AND RIJ IN PLACE PATENT. PURE WICK INI PLACE
--- NOTE | 2024-12-01 04:04 | NUR ---
PROVIDED FABIAN WITH A SPACER FOR HER MDI AT HOME
[2024-12-01] MEDS ORDERED: INHALER, ASSIST DEVICES 1 EACH SPACER MISC ONE (04:15)
[2024-12-01] MEDS ORDERED: PIPERACILLIN/TAZOBACTAM 3.375 GM VIAL ONE ×2 (05:20→13:52)
[2024-12-01 05:51] LABS: BASOPHILS 0.2 % (0-2); HEMATOCRIT 44.7 % (35.0-50.0); HEMOGLOBIN 14.6 g/dL (12.0-18.0); LYMPHOCYTES 8.6 % (24-44); MCH 30.3 (27-36); MCHC 32.5 g/dl (30-36); MCV 93.2 fl (81-99); MONOCYTES 4.5 % (0-12); NEUTROPHILS 86.7 % (39-80); PLATELET COUNT 171 K/uL (140-440); RDW 15.9 (10.5-15.0)
--- NOTE | 2024-12-01 05:55 | NUR ---
On 2LNC, no c/o sob with exertion at his time. Cooperative with blood draws through IJ. sample sent to lab. pure wick in place, changed, draining dark yellow urine with sediments. no c/o pain
[2024-12-01 05:58] LABS: ANION GAP 10.3 (7-21); BUN/CREATININE RATIO 17.89 (6.0-28.6); CALCIUM 8.4 mg/dL (8.5-10.1); CREATININE, SERUM 0.95 mg/dL (0.55-1.02); POTASSIUM 4.3 mmol/L (3.5-5.1)
--- NOTE | 2024-12-01 07:19 | NUR ---
REPORT RECEIVED FROM JENNIE LANG. PT IS IN BED RESTING BUT SPEAKING. THIS RN ASKS PT WITH WHOM IS SHE SPEAKING. PT STATES "OH, NO ONE AT ALL APPARENTLY." PT NC NOTED TO BE OUT OF HER NOSE. NC REPLACED, PT ON 2L O2. [place] NOTED TO BE DRAINING CLEAR, YELLOW URINE TO WALL SUCTION. NO REQUESTS AT THIS TIME, CALL LIGHT IN REACH.
--- NOTE | 2024-12-01 08:00 | NUR ---
MEDICATION ADMINISTERED, SEE MAR. ASSISTED NNAMDI KEYS TO CHANGE PT, HER BRIEF IS SATURATED DESPITE PUREWICK. POWDER APPLIED TO GROIN AND PANNUS AT THIS TIME. PT ASSISTED WITH 2PA AND FWW UP TO RECLINER. BLE ELEVATED ON A PILLOW. NNAMDI KEYS REMAINS IN ROOM AT THIS TIME.
--- NOTE | 2024-12-01 09:14 | NUR ---
PT ASSISTED TO RESTROOM AND THEN TO BED WITH 1PA (NNAMDI KEYS) AND FWW. FRESH BRIEF AND PUREWICK APPLIED IN BED, BLE ELEVATED ON PILLOW AND WITH MATTRESS. PT REPORTS SHE IS COMFORTABLE. AMOL, RESPIRATORY THERAPY ARRIVES TO TREAT AND EVAL PT. PT CURRENTLY ON ROOM AIR FOR RESPIRATORY THERAPY. LUNG SOUNDS CLEAR TO BUL, WITH VERY FINE CRACKLE TO BLL. PT REPORTS SOB ONLY WITH EXCESS TALKING OR EXERTION, NOT CURRENTLY WHILE RESTING IN BED. IV TO L AC FLUSHES WNL, DRESSING IS REINFORCED WITH TAPE AT THIS TIME. R IJ TRIPLE LUMEN HAS GOOD FLUSH AND BRISK BLOOD RETURN TO ALL THREE PORTS. DRESSING ALSO REINFORCED WITH TAPE NEAR THE BACK OF HER NECK. PT HAS TRACE EDEMA TO BILAT ANKLES, SHE STATES THIS IS CHRONIC FOR HER AND ELEVATING THEM ALWAYS HELPS AT HOME. ASSESSMENT COMPLETE. RESPIRATORY THERAPY REMAINS WITH PT AT THIS TIME.
--- NOTE | 2024-12-01 10:14 | NUR ---
PT RESTING WITH EYES CLOSED, RR EVEN AND UNLABORED, MUMBLING. CALL LIGHT IN REACH.
--- NOTE | 2024-12-01 11:02 | NUR ---
PT IV ABX COMPLETE. PORT FLUSHED, BRISK BLOOD RETURN NOTED, SALINE LOCKED. PT VERBALIZES AGAIN THAT SHE WOULD LIKE TO GO HOME TODAY, SHEs EXCITED ABOUT IT. PTs ONLY REQUEST IS THAT HER IJ BE REMOVED. THIS RN EXPLAINS TO PT THAT THAT REQUIRES AN ORDER. PT VERBALIZES UNDERSTANDING AND STATES "I WAS JUST BEING HOPEFUL". NO REQUESTS, CALL LIGHT IN REACH.
--- NOTE | 2024-12-01 12:21 | NUR ---
MEDICATION ADMINISTERED, SEE MAR. PT RESTING IN BED, NNAMDI KEYS JUST REMOVING LUNCH TRAY. PT HAS NO REQUESTS AT THIS TIME, CALL LIGHT IN REACH.
--- NOTE | 2024-12-01 13:20 | NUR ---
DOCTOR DON INTO TALK TO PATIENT. SHE WILL BE DISCHARGED TODAY TO HOME. WE WILL GET A RIDE SET UP FOR HER.
[2024-12-01] MEDS ORDERED: CEFDINIR300 MG PO ×2 (13:28)
[2024-12-01] MEDS ORDERED: VENTOLIN HFA18 GM INH ×2 (13:29)
[2024-12-01] MEDS ORDERED: PREDNISONE20 MG PO ×2 (13:30)
--- NOTE | 2024-12-01 13:54 | NUR ---
REQUIRED PAPERS FAXED TO [employer]. THIS RN CALLED [employer] TO VERIFY RECEIPT OF FAX AND ASSIST IN ARRANGING OXYGEN, NO RESPONSE, BUT VOICEMAIL LEFT.
--- NOTE | 2024-12-01 15:00 | NUR ---
PT UPDATED ON DISCHARGE PLAN OF 1600 WITH [employer]. [employer] PREVIOUSLY NOTIFIED.
[2024-12-07] MEDS ORDERED: DEXAMETHASONE6 MG PO ×2 (09:53)
== END 2024-12-01 15:45 | disposition home or self-care (01) | DRG 871 ==
LOC: ED 11:01 → MS 16:36 → CCU 16:36 → MS 11-30 14:10
PROVIDERS: Emergency Medicine; ADMIT Student in an Organized Health Care Education/Training Program; ATTEND Student in an Organized Health Care Education/Training Program
PROC: 3E03329 Introduction of Other Anti-infective into Peripheral Vein, Percutaneous Approach (ICD-10-PCS; principal; 2024-11-29)
PROC: 02HV33Z Insertion of Infusion Device into Superior Vena Cava, Percutaneous Approach (ICD-10-PCS; 2024-11-29)
PROC: B548ZZA Ultrasonography of Superior Vena Cava, Guidance (ICD-10-PCS; 2024-11-29)
PROC: 3E033XZ Introduction of Vasopressor into Peripheral Vein, Percutaneous Approach (ICD-10-PCS; 2024-11-29)
DX: A41.9 Sepsis, unspecified organism (principal); J96.91 Respiratory failure, unspecified with hypoxia; R65.21 Severe sepsis with septic shock; N39.0 Urinary tract infection, site not specified; J44.1 Chronic obstructive pulmonary disease with (acute) exacerbation; Z66 Do not resuscitate; E11.9 Type 2 diabetes mellitus without complications; M81.0 Age-related osteoporosis without current pathological fracture; Z96.661 Presence of right artificial ankle joint; F17.210 Nicotine dependence, cigarettes, uncomplicated; Z88.5 Allergy status to narcotic agent; Z88.8 Allergy status to other drugs, medicaments and biological substances; Z79.01 Long term (current) use of anticoagulants; Z88.2 Allergy status to sulfonamides; Z79.899 Other long term (current) drug therapy; Z86.711 Personal history of pulmonary embolism; Z79.51 Long term (current) use of inhaled steroids; Z79.84 Long term (current) use of oral hypoglycemic drugs; Z97.10 Presence of artificial limb (complete) (partial), unspecified; Z90.49 Acquired absence of other specified parts of digestive tract; Z90.89 Acquired absence of other organs; Z98.890 Other specified postprocedural states; Z98.42 Cataract extraction status, left eye; Z98.41 Cataract extraction status, right eye
CPT/HCPCS: 36415; 36556; 36592; 51701; 71045; 71260; 80048; 80053; 80307; 81001; 82803; 83605; 83735; 83880; 84484; 85025; 87040; 87070; 87075; 87088; 87205; 93005; 93010; 94640; 94664; 94668; 94760; 94761; 97162; 97166; 97530; 99285-25; G0480; J0696; J1815; J2543; J2919; J7030; J7040; J7121; Q9967

== ENCOUNTER 2024-12-02 12:27 | Inpatient (IN) | payer MEDICARE, OTHER ==
[~2024-12-02] VITALS: Ht 162.6 cm; Wt 77.5 kg
[~2024-12-02 12:27] MED LIST changes: +CEFDINIR300 MG PO; +METRONIDAZOLE45 GM TOP
--- OUTSIDE RECORDS SUMMARY | 2024-12-02 12:30 | XMS ---
PreManage Notification: FABIAN RIOS Security Single Stroke Preformer Events No recent Security Events currently on file CRITERIA MET - [facility] - 2 Visits in 30 Days CARE PROVIDERS Lu Ritter Tractor Crane Operator/Rim Fire Priming Tool Setter 02/08/2024-Current PHONE: [phone] -, [facility] Dentist: Thermal Intelligence Analyst [facility] PHONE: [phone] -[facility]- Dentist: Thermal Intelligence Analyst Current [facility] PHONE: [phone] [facility] PHONE: [phone] JEFF BAIRES Internal Medicine Current PHONE: Unknown Basilio has no Care Guidelines for this patient. Annie VISIT COUNT (12 MO.) 6 BRANDI Mckeon TOTAL 6 NOTE: Visits indicate total known visits. ED/UCC VISIT TRACKING (12 MO.) 12/02/2024 12:28 BRANDI ZebMalcolm Rollins [place] TYPE: Emergency COMPLAINT: - SHORTNESS OF BREATH 11/29/2024 11:01 BRANDI Medeiros [place] TYPE: Emergency COMPLAINT: - SHORTNESS OF BREATH 07/17/2024 10:38 BRANDI Medeiros [place] TYPE: Emergency COMPLAINT: - CHEST PAIN DIAGNOSES: - Allergy status to narcotic agent - Allergy status to other drugs, medicaments and biological substances - Allergy status to sulfonamides - Chest pain, unspecified - Chronic obstructive pulmonary disease, unspecified - continuous churn buttermaker (current) use of anticoagulants - Nicotine dependence, unspecified, uncomplicated - Other intermodal customer service (current) drug therapy - Personal history of pulmonary embolism - Type 2 diabetes mellitus without complications 04/17/2024 20:26 BRANDI Medeiros [place] TYPE: Emergency COMPLAINT: - CHEST PAIN DIAGNOSES: - Allergy status to narcotic agent - Allergy status to other drugs, medicaments and biological substances - Allergy status to sulfonamides - Chronic obstructive pulmonary disease, unspecified - continuous churn buttermaker (current) use of anticoagulants - MCFP (current) use of systemic steroids - Other chest pain - Other penitentiary (current) drug therapy - Shortness of breath - Type 2 diabetes mellitus without complications 03/08/2024 15:30 BRANDI Medeiros [place] TYPE: Emergency COMPLAINT: - DIZZNESS DIAGNOSES: - Allergy status to narcotic agent - Allergy status to other drugs, medicaments and biological substances - Allergy status to sulfonamides - Chronic obstructive pulmonary disease, unspecified - Dizziness and giddiness - Nicotine dependence, unspecified, uncomplicated - Other intermodal customer service (current) drug therapy - Secondary polycythemia - Type 2 diabetes mellitus without complications 02/26/2024 13:46 BRANDI Medeiros [place] TYPE: Emergency COMPLAINT: - SOB DIAGNOSES: - Age-related osteoporosis without current pathological fracture - Allergy status to analgesic agent - Allergy status to sulfonamides - Chronic obstructive pulmonary disease with (acute) exacerbation - continuous churn buttermaker (current) use of anticoagulants - MCFP (current) use of inhaled steroids - continuous churn buttermaker (current) use of oral hypoglycemic drugs - Nicotine dependence, unspecified, uncomplicated - Shortness of breath - Type 2 diabetes mellitus without complications - Unspecified osteoarthritis, unspecified site INPATIENT VISIT TRACKING (12 MO.) 11/29/2024 16:36 BRANDI Medeiros [place] TYPE: Medical Surgical COMPLAINT: - SIRS,RESP FAILURE,UTI [email or web address]
[2024-12-02 12:49] LABS: BASOPHILS 0.2 % (0-2); EOSINOPHILS 0.4 % (0-6); HEMATOCRIT 50.8 % (35.0-50.0); HEMOGLOBIN 16.7 g/dL (12.0-18.0); LYMPHOCYTES 13.5 % (24-44); MCH 30.6 (27-36); MCHC 32.8 g/dl (30-36); MCV 93.3 fl (81-99); MONOCYTES 5.9 % (0-12); PLATELET COUNT 182 K/uL (140-440); RBC 5.44 M/ul (4.3-5.7)
[2024-12-02] MEDS ORDERED: ALBUTEROL/IPRATROPIUM 3 ML NEB INH ONE (13:00)
[2024-12-02 13:06] LABS: ALBUMIN 3.1 g/dL (3.4-5.0); ALBUMIN/GLOBULIN RATIO 0.76 (1.1-2.4); ANION GAP 12.1 (7-21); BILIRUBIN, TOTAL 0.4 mg/dL (0.2-1.0); BUN/CREATININE RATIO 16.98 (6.0-28.6); CALCIUM 8.8 mg/dL (8.5-10.1); CREATININE, SERUM 1.06 mg/dL (0.55-1.02); POTASSIUM 4.1 mmol/L (3.5-5.1); PROTEIN, TOTAL 7.2 g/dL (6.4-8.2)
[2024-12-02] MEDS ORDERED: FUROSEMIDE 20 MG/2 ML VIAL IV ONE ×2 (15:15→22:45)
[2024-12-02] MEDS ORDERED: DEXTROSE 5% 1,000 ML IV PRN (15:30)
[2024-12-02] MEDS ORDERED: ACETAMINOPHEN 325 MG TAB PO PRN (15:30)
[2024-12-02] MEDS ORDERED: GLUCAGON,HUMAN RECOMBINANT 1 MG/ML VIAL SUB-Q PRN (15:30)
[2024-12-02] MEDS ORDERED: DEXTROSE 50% 50 ML SYR IV PRN ×2 (15:30)
[2024-12-02] MEDS ORDERED: IBLOOD GLUCOSE TEST STRIP 1 EA TEST XX PRN (15:30)
[2024-12-02] MEDS ORDERED: ondansetron HCL 4 MG/2 ML VIAL IV PRN (15:30)
[2024-12-02] MEDS ORDERED: ALBUTEROL SULFATE 0.083% 3 ML VIAL INH PRN (16:00)
--- NOTE | 2024-12-02 16:00 | NUR ---
PT REPORT RECIEVED FROM ER, RN. PT TRASPORTED FROM ER TO MED/SURG VIA STRETCHER. PT HAD 2L O2 NC IN PLACE AND AIR SAMPLER IN PLACE. PT ALSO ARRIVED WITH PUREWICK. PT VITALS STABLE AND PT TOLERATED WELL. PT HAS NOT BEEN OUT OF BED SINCE ADMISSION AND WAS MOVED VIA DRAW SHEET TO [facility] BED. PT LEFT WITH CALL LIGHT IN REACH AND NO CONCERNS AT THIS TIME.
[2024-12-02 16:03] VITALS: BP 125/75
[2024-12-02] MEDS ORDERED: INSULIN LISPRO 100 UNIT/ML ML SUB-Q SCH (17:00)
[2024-12-02] MEDS ORDERED: IBLOOD GLUCOSE TEST STRIP 1 EA TEST VI SCH (17:00)
--- NOTE | 2024-12-02 17:49 | NUR ---
PT SITTING UP IN BED WITH CALL LIGHT IN REACH. PT HAS NO CURRENT CONCERNS AT THIS TIME. PUREWICK IN PLACE WELL CPOX AND 2L O2 NC.
[2024-12-02 18:17] VITALS: BP 143/71
--- NOTE | 2024-12-02 18:36 | NUR ---
PT LAYING IN BED PT CURRENTLY IN ROOM GETTING HER ECHO DONE. PT HAS NO CONCERNS AT THIS TIME.
--- NOTE | 2024-12-02 18:40 | NUR ---
MD OCHOA WAS CONTACTED DUE TO PT TROP LEVEL. MD OCHOA ORDERED EKG. PT REPORTS NO CHEST PAIN AND IS CURRENTLY RECEIVING AN ECHO.
[2024-12-02 19:14] VITALS: BP 143/71
[2024-12-02] MEDS ORDERED: ALBUTEROL/IPRATROPIUM 3 ML NEB INH SCH (20:00)
--- NOTE | 2024-12-02 20:28 | NUR ---
FABIAN'S BS ARE CLEAR B/L. SHE DEMONSTRATES UNDERSTANDING AND PROFICIENCY WITH THE CORNET LEVEL 5. SHE IS THINKING ABOUT MOVING IN WITH HER BROTHER IN [place].
[2024-12-02 20:38] VITALS: BP 129/65
[2024-12-02 20:39] VITALS: BP 129/65
--- NOTE | 2024-12-02 20:55 | NUR ---
Pt awake, alert and oriented, SOb with exertion noted. On 2LNC, CPOX on at bedside. Lungs dim at bases. Tele#[address], Sinus Tach, EKG done by Rt as per orders showing Incomplete R BBB. Dr Olson aware. Pt denies CP. abd soft, hos, pure wick in place, drining large amont of cler yellow urine. SL LA patent. generalized edema presnt. redness around R neck folds noted, wiped and dried. Pt has an IJ that was removed a couple days ago. CBG 287, received 7 units SSI. very dry scaly skin present,. C/o Tender limited R arm use. pleasant and cooperative, alert and oriented to all.
[2024-12-02] MEDS ORDERED: APIXABAN 5 MG TAB PO SCH (21:00)
[2024-12-02] MEDS ORDERED: CEFDINIR 300 MG CAP PO SCH (21:00)
--- NOTE | 2024-12-02 22:41 | NUR ---
PT HAD CRITICAL LAB LEVELS TROPONIN 115.[address] OCHOA CALLED THIS UNIT. LABS TO BE REPEATED IN AM, WILL ORDER LASIX FOR TONIGHT. WILL CONTINUE TO OBSERVE TROPONIN TRENDS MAY BE DEMAND ISCHEMIA FROM HER PE. PT AWAKE, WATCHING TV, TELE IN PLACE, DENIES C/O PAIN
--- NOTE | 2024-12-02 23:07 | NUR ---
LASIX 20MG IV GIVEN PER ORDERS, MED TEACHING DONE, PT COOPERATIVE, PUREWICK IN PLACE. O2 2LNC, CHRONIC, CPOX AT BEDSIDE, MOIST PRODUCTIVE COUGH PRESENT.
[2024-12-03] VITALS (13 sets, daily range): BP systolic 114–140; BP diastolic 54–92
--- NOTE | 2024-12-03 00:33 | NUR ---
On 2LNC, cpox at bedside, purewick in place, draining clear yellow urine. Incontinent of urine too, attends changed, purewick changed. Irritable, semicooperative. stiff LW, required several cues, edema to LE, elevated. Repositioned in bed.
--- NOTE | 2024-12-03 02:06 | NUR ---
awake, cooperative with vitals and second assessment. On 2LNC, cpox at bedside, sats WNL, no sob noted. snacks given on request, tolerating liquids well. pure wick in place draining clear yellow urine.
--- NOTE | 2024-12-03 03:54 | NUR ---
Resting, eyes closed, O2/CPOX in place. nos/sx distress
[2024-12-03 05:47] LABS: BASOPHILS 0.3 % (0-2); EOSINOPHILS 0.1 % (0-6); HEMATOCRIT 51.8 % (35.0-50.0); HEMOGLOBIN 17.2 g/dL (12.0-18.0); LYMPHOCYTES 10.1 % (24-44); MCH 30.5 (27-36); MCHC 33.1 g/dl (30-36); MCV 92.1 fl (81-99); MONOCYTES 8.6 % (0-12); NEUTROPHILS 80.9 % (39-80); PLATELET COUNT 165 K/uL (140-440); RBC 5.63 M/ul (4.3-5.7); RDW 15.9 (10.5-15.0)
--- NOTE | 2024-12-03 06:13 | NUR ---
pt on 2LNC O2, lungs dim at bases. moist cough productive of thin clear phlegm. Up to standing scale, very slow moving, "Arcadio afraid of falls, I have a electric w/c that pulls me out and up'." limited motion L arm. Daily standing wewight 78.4KG, pt on lasix, generalized edema present. redness to R lower calf present, no changes. unable to harmeet due to pt c/o extreme "ticklish" sensation to LE. O2 increaed to 4L when up due to desatting to 79% while standing up and back to 89-92 on 4L. anxious and paranoid about falling, reassured, all cares explained prior to, efforts praised. Calmer once she is bed
[2024-12-03 06:14] LABS: ALBUMIN/GLOBULIN RATIO 0.77 (1.1-2.4); ANION GAP 8.8 (7-21); BILIRUBIN, TOTAL 0.7 mg/dL (0.2-1.0); BUN/CREATININE RATIO 17.75 (6.0-28.6); CALCIUM 8.9 mg/dL (8.5-10.1); CREATININE, SERUM 1.07 mg/dL (0.55-1.02); MAGNESIUM 1.9 mg/dL (1.8-2.4); POTASSIUM 3.8 mmol/L (3.5-5.1); PROTEIN, TOTAL 6.9 g/dL (6.4-8.2)
--- NOTE | 2024-12-03 07:32 | NUR ---
BUSINESS PROJECT ANALYST ENETERED ROOM TO DO BG CHECK. PT WAS DROUSY AND CONFUSED. MD. OCHOA SUPERVISING BAILIFF AND THIS RN ENETERED ROOM. PT WAS WEAK, AND CONFUSED OF PERSON. PT BG, AND BP WERE CHECK, PT O2 WAS 92% ON 2L NC. ORDERED EKG AND PT LEFT WITH RT FOR BREATHING TREATMENT. PT HAS CALL LIGHT IN REACH.
[2024-12-03] MEDS ORDERED: ALBUTEROL/IPRATROPIUM 3 ML NEB INH SCH (08:00)
[2024-12-03] MEDS ORDERED: predniSONE 20 MG TAB PO SCH (09:00)
--- NOTE | 2024-12-03 09:20 | NUR ---
PT LAYING IN BED, PT DOES NOT REPORT ANY SOB, OR CHEST PAIN, PT STATES " HER NAME, WHERE SHE IS AT AND WHY SHE IS HERE" WHEN ASKED. PT STATES SHE IS TIRED AND SLEEPS USUALLY DURING THE DAY. PT HAS NO COCNERNS AT THIS TIME CALL LIGHT IN REACH.
[2024-12-03] MEDS ORDERED: FUROSEMIDE 20 MG TAB PO SCH (09:54)
--- NOTE | 2024-12-03 10:51 | NUR ---
PT TROP LEVEL WAS CALLED IN FROM LAB TROP WAS 112.7, MD OCHOA WAS NOTIFIED AND WAS MADE AWARE OF THE DECREASED RESULTS.
--- NOTE | 2024-12-03 11:03 | NUR ---
PT CURRENTLY LAYING IN BED AND ASKED TO HAVE THE LIGHTS DIMMED. PT HAS NO COCNERNS AT THIS TIME, PT HAS CALL LIGHT IN REACH. WITH CPOX IN PLACE AND 3L O2 NC.
--- NOTE | 2024-12-03 11:15 | NUR ---
INTO SEE PATIENT. OXYGEN ON AND PATIENT RESTING. PATIENT ALERT BUT NOT ABLE TO ANSWER QUESITIONS AT THIS TIME. PATIENT RECIEVES OXYGEN THROUGH [facility]. PATIENT HAS A WALKER AT HOME. SHE LIVES WITH A CAREGIVER AND CAREGIVERS SON. HAS TWO ADDITIONAL CAREGIVERS THAT COME DURING THE DAY AND HELP HER WITH GROCERIES. PATIENT DOES NOT HAVE ANY OTHER CM NEEDS AT THIS TIME. WILL CHECK BACK LATER.
--- NOTE | 2024-12-03 11:21 | NUR ---
PT LAYING IN BED WITH EYES CLOSED CHEST RISE EQUAL BILAT, PT CPOX IN PLACE WITH O2 SAT @ 91% ON 3L O2 NC. PT HAS CALL LIGHT IN REACH.
--- NOTE | 2024-12-03 11:59 | NUR ---
medications reconciled by pharmacy. discharged 12/01 and readmitted 12/02/24
[2024-12-03] MEDS ORDERED: PHARMACY RENAL DOSE ADJUSTMENT 1 DOSE MISC PO SCH (12:00)
--- NOTE | 2024-12-03 12:18 | NUR ---
PT LAYING IN BED, PT APEARS TIRED, PT ALERT AND ORIENTED X4, PT DENIES SOB, AND DENIES CHEST PAIN AT THIS TIME. PT STATES " SHE FEELS SICK BUT DOES NOT WANT ANY MEDICATIONS". PT HAS CALL LIGHT IN REACH.
--- NOTE | 2024-12-03 12:22 | NUR ---
Patient appears to be in and out of it. She responds when asking questions. No request from patient at this time. Call light has been placed within reach
--- NOTE | 2024-12-03 13:10 | NUR ---
PT RESTING IN BED WITH EYES CLOSED AND CHEST RISE EQUAL BILAT, PT EASLY AROUSABLE. PT STATES " SHE NEEDS NOTHING AT THIS TIME". PT HAS CALL LIGHT IN REACH.
--- NOTE | 2024-12-03 15:00 | NUR ---
PT LAYING IN BED WITH EYES CLOSED. PT CHEST RISE EQUAL BILAT. CPOX IN PLACE WITH 3L NC O2. PT HAS CALL LIGHT IN REACH.
--- NOTE | 2024-12-03 16:05 | NUR ---
PT MOVED TO CHAIR WITH HELP FROM THIS RN AND SHUTTLE FILLER. PT PIVOTED TO CHAIR. PT PUREWICK CHANGED AND BED WAS ALSO CHANGED. PT HAS NO CURRENT CONCERNS AT THIS TIME AND CALL LIGHT IN REACH.
--- NOTE | 2024-12-03 16:19 | NUR ---
PT SITTING UP IN CHAIR WITH EYES CLOSED CHEST RISE EQUAL BILAT. PT EASLY AROUSABLE. PT STATES SHE HAS NO PAIN AT THIS TIME, AND DENIES NAUSEA, OR SOB. PT HAS CALL LIGHT IN REACH AND EXPRESSES NO COCNERNS AT THIS TIME.
--- NOTE | 2024-12-03 16:59 | NUR ---
PT IN CHAIR, PT HAS 3L NC O2, AND CPOX IN PLACE. PT HAS NO CURRENT NEEDS AT THIS TIME CALL LIGHT IN REACH.
--- NOTE | 2024-12-03 17:11 | NUR ---
PT SITTING IN CHAIR WITH A VISITOR, WHO CLAIMS TO BE HER DAY TIME COMMUNICATION SPEC. PT AND COMMUNICATION SPEC LEFT TO VISIT, PT HAS NO CONCERNS AT THIS TIME CALL LIGHT IN REACH.
--- NOTE | 2024-12-03 18:21 | NUR ---
PT SITTING UP IN CHAIR EATING DINNER, PT HAS NO COMPLAINTS AT THIS TIME. PT HAS CALL LIGHT IN REACH.
--- NOTE | 2024-12-03 18:41 | NUR ---
PT SITTING IN CHAIR, PT HAS EYES CLOSED, AND CHEST RISE EQUAL BILAT. PT HAS CPOX IN PLACE READING 93% O2 SAT TELE # 104 S/T. PT HAS CALL LIGHT IN REACH.
--- NOTE | 2024-12-03 19:05 | NUR ---
REPORT RECEIVED FROM RADHA LANG. pt RESTING IN THE CHAIR. BOARD UPDATED. pt DENIES ANY OTHER NEEDS AT THIS TIME. CALL LIGHT WITHIN REACH.
--- NOTE | 2024-12-03 20:15 | NUR ---
ASSESSMENT AND VITAL SIGNS DONE. pt TRANSFERED TO THE BSC. 2PA WITH FWW. pt BACK TO BED. LUNG SOUNDS CLEAR. BG CHECKED WITH A RESULTS OF 285. SS INSULING ADMINISTERED. SCHEDULED MEDS ADMINISTERED. pt DENIES ANY OTHER NEEDS AT THIS TIME. CALL LIGHT WITHIN REACH. IV ASSESSED, WNL.
--- NOTE | 2024-12-03 21:17 | NUR ---
NASAL SWAB DONE FOR COVID/RSV/FLU+ AND SENT TO THE LAB.
[2024-12-03 21:58] LABS: INFLUENZA B NAA NEGATIVE (NEGATIVE); RESPIRATORY SYNCYTIAL VIR NAA NEGATIVE (NEGATIVE)
[2024-12-03] MEDS ORDERED: REMDESIVIR 200 MG in SODIUM CHLORIDE 0.9% 210 ML IV ONE (22:15)
--- NOTE | 2024-12-03 22:16 | EKG ---
[facility] [address] [facility] [place] [address] Signed Sinus tachycardia Right bundle branch block Abnormal ECG When compared with ECG of 29-NOV-2024 11:35, No significant change was found Confirmed by Arnulfo Ochoa MD () on 12/03/2024 10:16:51 PM Electronically Signed By: ARNULFO OCHOA MD 12/03/24 2216 PATIENT NAME: FABIAN RIOS Electrocardiogram DATE OF : 42 PHYSICIAN: ARNULFO OCHOA MD REPORT #: [id number] REPORT IS CONFIDENTIAL AND NOT TO BE RELEASED WITHOUT AUTHORIZATION
--- NOTE | 2024-12-03 22:18 | EKG ---
[facility] [address] [facility] [place] [address] Signed Sinus tachycardia Right bundle branch block Abnormal ECG When compared with ECG of 02-DEC-2024 20:40, QRS axis shifted right Confirmed by Arnulfo Ochoa MD () on 12/03/2024 10:18:19 PM Electronically Signed By: ARNULFO OCHOA MD 12/03/24 2218 PATIENT NAME: FABIAN RIOS Electrocardiogram DATE OF : 42 PHYSICIAN: ARNULFO OCHOA MD REPORT #: [id number] REPORT IS CONFIDENTIAL AND NOT TO BE RELEASED WITHOUT AUTHORIZATION
--- NOTE | 2024-12-03 22:30 | NUR ---
pt TESTED POSITIVE FOR COVID. pt MOVED TO RM 113. WATER REFRESHED. pt ON 2LNC. CPOX ON. pt DENIES ANY OTHER NEEDS AT THIS TIME. CALL LIGHT WITHIN REACH.
[2024-12-03] MEDS ORDERED: SODIUM CHLORIDE 0.9% 250 ML IV ONE (23:19)
--- NOTE | 2024-12-03 23:37 | NUR ---
IN RM TO HANG pt IV MEDICATION. pt RESTING WITH EYES CLOSED. RR EVEN AND UNLABORED. CALL LIGHT WITHIN REACH. IV ASSESSED, WNL.
[2024-12-04] VITALS (11 sets, daily range): BP systolic 124–146; BP diastolic 58–80
--- NOTE | 2024-12-04 02:00 | NUR ---
VITAL SIGNS DONE AND ASSESSMENT DONE. pt REPOSTIONED IN THE BED. LUNG SOUNDS ARE CLEAR. 2LNC pt SATTING AT 91%. pt STATE SHE IS FEELING FINE AND DENIES ANY NEEDS AT THIS TIME. CALL LIGHT WITHIN REACH.
--- NOTE | 2024-12-04 04:02 | NUR ---
pt RESTING IN THE BED WITH EYES CLOSED. RR EVEN AND UNLABORED. CALL LIGHT WITHIN REACH.
[2024-12-04 05:30] LABS: BASOPHILS 0.2 % (0-2); EOSINOPHILS 0.1 % (0-6); HEMATOCRIT 51.4 % (35.0-50.0); HEMOGLOBIN 17.5 g/dL (12.0-18.0); LYMPHOCYTES 8.7 % (24-44); MCH 30.9 (27-36); MCV 90.8 fl (81-99); MONOCYTES 6.9 % (0-12); NEUTROPHILS 84.1 % (39-80); PLATELET COUNT 158 K/uL (140-440); RBC 5.65 M/ul (4.3-5.7); RDW 15.6 (10.5-15.0)
[2024-12-04 05:51] LABS: ALBUMIN 2.7 g/dL (3.4-5.0); ALBUMIN/GLOBULIN RATIO 0.66 (1.1-2.4); ANION GAP 9.5 (7-21); BILIRUBIN, TOTAL 0.6 mg/dL (0.2-1.0); BUN/CREATININE RATIO 22.58 (6.0-28.6); CALCIUM 8.8 mg/dL (8.5-10.1); CREATININE, SERUM 0.93 mg/dL (0.55-1.02); MAGNESIUM 1.9 mg/dL (1.8-2.4); POTASSIUM 3.5 mmol/L (3.5-5.1); PROTEIN, TOTAL 6.8 g/dL (6.4-8.2)
--- NOTE | 2024-12-04 06:33 | NUR ---
pt HAD FEVER OF 100.8. PRN TYLENOL ADMINISTERED. pt DENIES ANY OTHER NEEDS AT THIS TIME. pt RESPOSITIONED WITH PILLOWS UNDER BOTH HIPS. CALL LIGHT WITHIN REACH. LUNG SOUNDS CLEAR.
--- NOTE | 2024-12-04 07:22 | NUR ---
MORNING REPORT RECIEVED FROM PRECIOUS CRAMER. PT LAYING IN BED WITH HOB ELEVATED AT 30% PT NC IN PLACE, AND CPOX. PT HAS EYES CLOSED AND CHEST RISE EQUAL BILAT. PT HAS CALL LIGHT IN REACH.
[2024-12-04] MEDS ORDERED: DEXAMETHASONE SOD PHOS 10 MG/ML VIAL IV SCH (09:00)
--- NOTE | 2024-12-04 09:10 | NUR ---
Notified in report, pt has Covid. Family and cg have not been notified. Spoke with Dr Olson. I will call the daughter and the CG, pt is asking we call and let her cg know she has covid. Caregivers have been calling in with questions. I called and spoke with daughter,Elli,and she was not surprised. She will let other family members know. I called Isaura one of the cg, she works for [employer] and she will let them know also. Pt denies other needs and plans on dc to home when returns to baseline.
--- NOTE | 2024-12-04 09:40 | NUR ---
PT VITALS AND I'S AND O'S COMPLETE. NNAMDI LORENZANA IN ROOM TO ASSIST WITH JILL CARE AND LINEN CHANGE. NEW PUREWICK PLACED. PT REQ TO BE POSITIONED FOR A NAP. PT PLACED IN SEMI-FOWLERS PER PT REQ. BED IN LOWEST POSITION. CPOX ON. PT 95% ON 2 LNC. CALL LIGHT IN REACH.
--- NOTE | 2024-12-04 10:34 | NUR ---
PT LAYING IN BED WITH EYES CLOSED CHEST RISE EQUAL BILAT. PT HAS O2 NC IN PLACE WELL CPOX READING 90%. PT HAS PT ABOUT TO ENTER THE ROOM. PT HAS CALL LIGHT IN REACH.
--- NOTE | 2024-12-04 10:57 | NUR ---
PT SITTING UP IN CHAIR, PT ALERT AND ORIENTED, PT CPOX AND O2 NC IN PLACE PT HAS NO CONERNS AT THIS TIME CALL LIGHT IN REACH.
--- NOTE | 2024-12-04 13:37 | NUR ---
PT NOT AVAILABLE FOR VISIT. PROVIDED PRAYER.
--- NOTE | 2024-12-04 13:56 | NUR ---
PT SITTING UP IN CHAIR WITH EYES CLOSED CHEST RISE EQUAL BILAT. PT HAS CALL LIGHT IN REACH. CPOX IN PLACE WELL NC @2L O2.
--- NOTE | 2024-12-04 14:37 | NUR ---
PT PIVOTED TO USE COMODE PT HAD A SMALL BM PT THEN MOVED BACK TO CHAIR 2PA. PT PUREWICK IN PLACE, CPOX, AND NC. PT HAS CALL LIGHT IN REACH AND NO OTHER CONCERNS AT THIS TIME.
--- NOTE | 2024-12-04 16:41 | NUR ---
PT SITTING UP IN CHAIR AWAKE AND ALERT, PT HAS CALL LIGHT IN REACH AND NO CONCERNS AT THIS TIME.
--- NOTE | 2024-12-04 18:08 | NUR ---
PT SITTING UP IN CHAIR. PT STATES " SHE IS FEELING BETTER, AND DOES NOT FEEL SOB". PT IS EATING DINNER AND HAS NO CONCERNS AT THIS TIME CALL LIGHT IN REACH.
--- NOTE | 2024-12-04 18:44 | NUR ---
PT AMBULATED FROM COMMODE TO BED PT PUREWICK IN PLACE AND 2L O2 NC. PT HAS NO CURRENT CONCERNS AT THIS TIME. CALL LIGHT IN REACH.
--- NOTE | 2024-12-04 19:10 | NUR ---
REPORT RECEIVED FROM RADHA LANG. pt RESTING IN THE BED. BOARD UPDATED. pt DENIES ANY OTHER NEEDS AT THIS TIME. CALL LIGHT WITHIN REACH.
[2024-12-04] MEDS ORDERED: REMDESIVIR 100 MG in SODIUM CHLORIDE 0.9% 230 ML IV SCH (21:00)
--- NOTE | 2024-12-04 21:35 | NUR ---
ASSESSMENT AND VITAL SIGNS DONE. pt REPOSTIONED IN THE BED. IV MEDS INFUSING PER ORDER. SCHEDULED MEDS ADMINISTERED. NEW PURE WICK PLACED. LUNG SOUNDS ARE CLEAR. BG CHECKED WITH A RESULTS OF 293. SS INSULIN ADMINISTERED. WATER REFRESHED. pt DENIES ANY OTHER NEEDS AT THIS TIME. CALL LIGHT WIHTIN REACH.
--- NOTE | 2024-12-04 23:40 | NUR ---
pt RESTING IN THE BED. TELE BATTERY REPLACED. pt DENIES ANY NEEDS AT THIS TIME. CALL LIGHT WITHIN REACH.
[2024-12-05] VITALS (10 sets, daily range): BP systolic 117–137; BP diastolic 58–77
--- NOTE | 2024-12-05 02:18 | NUR ---
ASSESSMENT AND VITAL SIGNS DONE. pt SATTING AT 92% ON 2LNC. LUNG SOUNDS ARE CLEAR. NO OTHER NEEDS AT THIS TIME. CALL LIGHT WITHIN REACH.
--- NOTE | 2024-12-05 02:51 | NUR ---
PATIENT CALLED ASKING FOR WARM BLANKET. PROVIDED. NO OTHER REQUEST.
--- NOTE | 2024-12-05 03:35 | NUR ---
pt RESTING IN THE BED WITH EYES CLOSED. RR EVEN AND UNLABORED. pt SATTING AT 93% ON 2LNC. NO OTHER NEEDS AT THIS TIME. CALL LIGHT WITHIN REACH.
[2024-12-05 05:42] LABS: BASOPHILS 0.2 % (0-2); EOSINOPHILS 0.3 % (0-6); HEMATOCRIT 47.5 % (35.0-50.0); HEMOGLOBIN 15.9 g/dL (12.0-18.0); LYMPHOCYTES 13.9 % (24-44); MCH 30.6 (27-36); MCHC 33.4 g/dl (30-36); MCV 91.6 fl (81-99); MONOCYTES 6.5 % (0-12); NEUTROPHILS 79.1 % (39-80); PLATELET COUNT 148 K/uL (140-440); RBC 5.19 M/ul (4.3-5.7); RDW 15.6 (10.5-15.0)
[2024-12-05 06:09] LABS: ALBUMIN 2.3 g/dL (3.4-5.0); ALBUMIN/GLOBULIN RATIO 0.59 (1.1-2.4); ANION GAP 7.5 (7-21); BILIRUBIN, TOTAL 0.5 mg/dL (0.2-1.0); BUN/CREATININE RATIO 25.47 (6.0-28.6); CALCIUM 8.5 mg/dL (8.5-10.1); CREATININE, SERUM 1.06 mg/dL (0.55-1.02); POTASSIUM 3.5 mmol/L (3.5-5.1); PROTEIN, TOTAL 6.2 g/dL (6.4-8.2)
--- NOTE | 2024-12-05 06:28 | NUR ---
pt UP TO THE BSC. pt HAD A LOSE STOOL. pt BACK TO BED. 2PA WITH FWW. pt DENIES ANY OTHER NEEDS AT THIS TIME. CALL LIGHT WITHIN REACH.
--- NOTE | 2024-12-05 07:28 | NUR ---
VERBAL REPORT RECEIVED FROM FROM PRECIOUS OSPINA. PT RESTS IN BED WITH EYES CLOSED, RESP EVEN AND UNLABORED.
--- NOTE | 2024-12-05 07:55 | NUR ---
UR CLINICAL REVIEW: 2 MN PEDRO, MEETS INPT FOR PULMONARY EDEMA, COVID IV MEDICATIONS, OXYGEN TITRATION, DIURESIS NEEDED MEDICARE INPT 12/02/2024 @ 1523 ORDER MATCHES REG NO AUTH REQUIRED PER MEDICARE RULES DC TO HOME WITH CAREGIVERS WHEN MEDICALLY STABLE.
--- NOTE | 2024-12-05 12:28 | NUR ---
PT UP TO BSC WITH 2 PA AND FWW. PT PASSES LARGE SOFT, BROWN BM. PT BACK TO RECLINER, EATS LUNCH, CALL LIGHT IN REACH.
--- NOTE | 2024-12-05 13:20 | NUR ---
PT BACK TO BED FROM RECLINER VIA 1 PA WITH FWW, REFRIGERATED CARGO CLERK PRESENT INCASE SECOND PERSON IS NEEDED. PT AMBULATES WITH STEADY GAIT WITH FWW TO BED. CALL LIGHT IN REACH, NO FURTHER REQUESTS AT THIS TIME.
[2024-12-05] MEDS ORDERED: ALBUTEROL/IPRATROPIUM 3 ML NEB INH SCH (14:00)
--- NOTE | 2024-12-05 14:45 | NUR ---
Pt resting in bed with [address] Denies needs.
--- NOTE | 2024-12-05 19:04 | NUR ---
Bedbath complete. Bed linens changed and clean gown provided. Patient's hair brushed and braided. Evette care done.
--- NOTE | 2024-12-05 19:10 | NUR ---
REPORT RECEIVED FROM SHOAIB LANG. BOARD UPDATED. SITTING IN THE CHAIR EATING DINNER. pt DENIES ANY OTHER NEEDS AT THIS TIME. CALL LIGHT WITHIN REACH.
--- NOTE | 2024-12-05 20:12 | NUR ---
GARAGE DOOR HANGER OBTAINED VITALS AND I&O. PT STATES NO NEEDS AT THIS TIME. CALL LIGHT WITHIN REACH.
--- NOTE | 2024-12-05 20:30 | NUR ---
ASSESSMENT AND VITAL SIGNS DONE. LUNG SOUNDS ARE CLEAR. SCHEDULED MEDS ADMINISTERED. IV ASSESSED, WNL. pt DENIES ANY OTHER NEEDS AT THIS TIME. CALL LIGHT WITHIN REACH.
[2024-12-05] MEDS ORDERED: SODIUM CHLORIDE 0.9% 250 ML IV ONE (20:37)
--- NOTE | 2024-12-05 22:45 | NUR ---
CALL LIGHT ANSWERED. PT NEEDED TO USE BATHROOM. KEY BED INSTALLER 1PA WITH FWW TO BS. PT INSTRUCTED TO USE CALL LIGHT WHEN FINISHED. CALL LIGHT ANSWERED. PT CALL LIGHT ANSWERED. KEY BED INSTALLER AND RN ASSISTED PT WITH PUTTING ON CLEAN BRIEF AND GETTING BACK TO BED. PUREWICK CHANGED. PT STATES NO FURTHER NEEDS AT THIS TIME. CALL LIGHT WITHIN REACH.
[2024-12-06] VITALS (9 sets, daily range): BP systolic 104–137; BP diastolic 61–90
--- NOTE | 2024-12-06 00:40 | NUR ---
pt RESTING IN THE BED. WATER REFRESHED. pt DENIES ANY OTHER NEEDS AT THIS TIME. CALL LIGHT WITHIN REACH.
--- NOTE | 2024-12-06 01:55 | NUR ---
DIRECTOR OF FOOD AND NUTRITION SERVICES OBTAINED VITALS AND I&O. PT STATES NO NEEDS AT THIS TIME. CALL LIGHT WITHIN REACH.
--- NOTE | 2024-12-06 02:39 | NUR ---
pt RESTING IN THE BED READING. pt DENIES ANY NEEDS AT THIS TIME. CALL LIGHTS WITHIN REACH.
--- NOTE | 2024-12-06 04:18 | NUR ---
pt RESTING THE BED WITH EYES CLOSED. pt SATTING AT 92% ON 2LNC. NO OTHER NEEDS AT THIS TIME. CALL LIGHT WITHIN REACH.
--- NOTE | 2024-12-06 06:13 | NUR ---
VITAL SIGNS DONE. BED WEIGHT DONE. pt DENIES ANY OTHER NEEDS AT THIS TIME. CALL LIGHT WITHIN REACH.
--- NOTE | 2024-12-06 06:52 | NUR ---
PHONE CALL TO BY PRECIOUS WILKINS. ORDER FOR AM LAB RECEIVED AND REPEATED BACK TO VERIFY. ORDERS UPDATED.
[2024-12-06 07:13] LABS: BASOPHILS 0.4 % (0-2); EOSINOPHILS 0.3 % (0-6); HEMATOCRIT 47.7 % (35.0-50.0); LYMPHOCYTES 20.5 % (24-44); MCH 30.7 (27-36); MCHC 33.6 g/dl (30-36); MCV 91.3 fl (81-99); MONOCYTES 8.5 % (0-12); NEUTROPHILS 70.3 % (39-80); PLATELET COUNT 162 K/uL (140-440); RBC 5.22 M/ul (4.3-5.7); RDW 15.6 (10.5-15.0)
--- NOTE | 2024-12-06 07:25 | NUR ---
REPORT RECEIVED FROM PRECIOUS OSPINA. PT RESTING IN BED AWAKE AND ALERT. PT IS REQUESTING TO HAVE HER HAIR REDONE. CALL LIGHT IN REACH.
[2024-12-06 07:27] LABS: ALBUMIN 2.4 g/dL (3.4-5.0); ALBUMIN/GLOBULIN RATIO 0.6 (1.1-2.4); ANION GAP 8.7 (7-21); BILIRUBIN, TOTAL 0.4 mg/dL (0.2-1.0); BUN/CREATININE RATIO 30.58 (6.0-28.6); CALCIUM 8.5 mg/dL (8.5-10.1); CREATININE, SERUM 0.85 mg/dL (0.55-1.02); POTASSIUM 3.7 mmol/L (3.5-5.1); PROTEIN, TOTAL 6.4 g/dL (6.4-8.2)
--- NOTE | 2024-12-06 09:27 | NUR ---
MEDICATION ADMINISTERED, SEE ZAMZAM. PRESENT IN ROOM TO ASSESS AND VISIT PT. ALL QUESTIONS AND CONCERNS ANSWERED. AMOL FROM RESPIRATORY THERAPY ARRIVES TO ASSESS AND PROVIDE BREATHING TX. PT HAS NO REQUESTS FOR THIS RN. RT REMAINS IN ROOM AT THIS TIME.
--- NOTE | 2024-12-06 09:30 | NUR ---
Spoke with Fiorella and Dr. Macario. Pt plans on dc to home tomorrow. Her cgs will transport her. Pt denies any needs. Pt has 02 at home. Pt will start on Paxlovid and will dc tomorrow if she tolerates.
--- NOTE | 2024-12-06 09:44 | NUR ---
Patient is sitting up in bed reading. Doctor and RN Roula entered room.
--- NOTE | 2024-12-06 10:10 | NUR ---
Today, as I enter the room I find Fiorella in her bed, awake, alert, oriented to person, place and time, and she appears to be reading her book. I introduced myself to Fiorella and explained my role in the facility. I then introduced and explained the IMM letter. Questions were answered. Fiorella states that she is agreeable to her discharge plan to home, and shares that the doctor has explained that he will transition her to oral blood pressure medicines prior to discharge to home. Fiorella desires to be well enough, and informed enough on her home care that she does not have to return to the hospital again for this same issue. She beleives that she will be medically ready for discharge tomorrow if nothing changes. Fiorella does sign the IMM letter without hesitation, and a signed copy of her IMM letter is provided to her. Fiorella denies further questions or patient care needs at this time.
--- NOTE | 2024-12-06 10:38 | NUR ---
ASSESSMENT COMPLETE. PT RESTING IN BED CONVERSING PLEASANTLY ABOUT BOOKS. LUNG SOUNDS CLEAR IN BUL, DIMINISHED IN BLL WITH OCCASIONAL EXPIRATORY WHEEZE NOTED IN LLL. PT REPORTS SHE FEELS SHE IS BREATHING VERY WELL, NO SOB, NO CHEST PAIN. SHE IS ON 2LNC WITH ACAPELLA AT BEDSIDE. OCCASIONAL COUGH NOTED, PT DENIES BEING ABLE TO EXPECTORATE ANYTHING AT THIS TIME. IV TO L UPPER ARM FLUSHES WNL, SALINE LOCKED. PT HAS NO COMPLAINTS OF PAIN OR DISCOMFORT AT THIS TIME. CALL LIGHT IN REACH.
--- NOTE | 2024-12-06 10:56 | NUR ---
Purewick changed and lucille care done at 1145. Patient is currently sitting up reading.
--- NOTE | 2024-12-06 12:20 | NUR ---
MEDICATION ADMINISTERED, SEE DEC. PT UP TO RECLINER WITH FWW AND 1PA, MILD EPISODE OF DIZZINESS WHEN FIRST SITTING UP, RECOVERS QUICKLY AND TOLERATES WALK TO RECLINER WELL. LUNCH TRAY IN ROOM. NNAMDI PIÑA REMAINS IN ROOM.
--- NOTE | 2024-12-06 13:42 | NUR ---
PATIENT ASSISTED BACK INTO BED FROM RECLINER WITH FWW AND 1 PA STAND BY. REQUESTING ICE. FRESH ICE GIVEN. DENEIS ANY FURTHER NEEDS. CALL LIGHT WITHIN REACH.
--- NOTE | 2024-12-06 14:55 | NUR ---
Evette care done and new purewick placed at 1400.
--- NOTE | 2024-12-06 15:52 | NUR ---
PT RESTING IN BED, NO COMPLAINTS OF PAIN OR DISCOMFORT. 2LNC IN PLACE, CPOX AT BEDSIDE. LUNG SOUNDS CLEAR WITH MILD EXPIRATORY WHEEZE IN BUL, DIMINISHED WITH EXPIRATORY WHEEZE IN BLL. PT REPORTS NO SHORTNESS OR BREATH OR CHEST PAIN. CONTINUES TO REPORT SHE FEELS BETTER TODAY THAN PREVIOUS DAYS. IV IN L UPPER ARM FLUSHES WNL. FRESH ICE WATER PROVIDED. NO OTHER REQUESTS, CALL LIGHT IN REACH.
--- NOTE | 2024-12-06 17:09 | NUR ---
INSULIN ADMINISTERED BY PRECIOUS CALDERÓN. PT UP IN RECLINER EATING SUPPER AT THIS TIME. NO REQUESTS, CALL LIGHT IN REACH.
--- NOTE | 2024-12-06 17:27 | NUR ---
TELE ORDER DISCONTINUED PER MD VERBAL ORDER VERIFIED WITH READBACK.
--- NOTE | 2024-12-06 17:56 | NUR ---
PT AMBULATES WITH SBA AND FWW FROM RECLINER TO BED. JILL-CARE PROVIDED, BRIEF CHANGED, AND FRESH PUREWICK PLACED. PT ROLLS SIDE TO SIDE IN BED WITHOUT ASSISTANCE. BREEVYN NOTED INTACT TO R BUTTOCK. HOB ELEVATED FOR PT COMFORT. 2LNC REMAINS IN PLACE, CPOX AT BEDSIDE, PUREWICK TO SUCTION. NO OTHER REQUESTS AT THIS TIME, CALL LIGHT AND PERSONAL BELONGINGS IN REACH.
--- NOTE | 2024-12-06 19:10 | NUR ---
REPORT RECEIVED FROM ANDIE RNNELL. PT IN BED, LIGHTS ON, READING BOOK. NO NEEDS VOICED AT THIS TIME.
--- NOTE | 2024-12-06 20:27 | NUR ---
FABIAN IS ON A 2L NC. SHE ABLE TO USE THE CORNET LEVEL 5 W/O DIFFICULTY.
[2024-12-06] MEDS ORDERED: RITONAVIR PO SCH (21:00)
[2024-12-06] MEDS ORDERED: [UNRECOGNIZED DRUG - OTHER] PO SCH (21:00)
[2024-12-06] MEDS ORDERED: NIRMATRELVIR PO SCH (21:00)
--- NOTE | 2024-12-06 22:00 | NUR ---
ASSESSMENT COMPLETED. PT KNOWN TO THIS RN. PT RECOGNIZED THIS RN. OCCASSIONAL COUGH. DENIES PRODUCTIVE COUGH. STATES SHE FEELS MUCH BETTER COMPARED TO ADMISSION DATE. PUREWICK IN PLACE. REPOSITIONED IN BED WITH ASSIST OF ANOTHER RN. FRESH ICE WATER GIVEN. GARBAGES EMPTIED, WHITE BOARD UPDATED.
--- NOTE | 2024-12-06 22:45 | NUR ---
PT REQUESTED AND RECEIVED LENNY SWENSONER. NO OTHER NEEDS.
--- NOTE | 2024-12-06 23:39 | NUR ---
ROUNDED ON PT. EYES CLOSED, FACE TOWARD WINDOW, MOUTH MOVING OCCASSIONAL WELL OCCASSIONAL FOOT TWITCH.
[2024-12-07 01:53] VITALS: BP 118/64
[2024-12-07 02:00] VITALS: BP 118/64
--- NOTE | 2024-12-07 02:44 | NUR ---
ROUNDED ON PT. AWAKE AND READING BOOK. CPOX READING 90% ON 2L.
--- NOTE | 2024-12-07 04:13 | NUR ---
ROUNDED. PT WITH EYES CLOSED, MOUTH BREATHING, O2 IN PLACE. CPOX READING 94%.
--- NOTE | 2024-12-07 04:32 | NUR ---
FABIAN IS ASLEEP ON A 2L NC.
[2024-12-07 05:46] LABS: ALBUMIN 2.4 g/dL (3.4-5.0); ALBUMIN/GLOBULIN RATIO 0.63 (1.1-2.4); ANION GAP 8.5 (7-21); BILIRUBIN, TOTAL 0.4 mg/dL (0.2-1.0); BUN/CREATININE RATIO 30.43 (6.0-28.6); CALCIUM 8.4 mg/dL (8.5-10.1); CREATININE, SERUM 0.92 mg/dL (0.55-1.02); POTASSIUM 4.5 mmol/L (3.5-5.1); PROTEIN, TOTAL 6.2 g/dL (6.4-8.2)
--- NOTE | 2024-12-07 06:15 | NUR ---
PT COVID, ON 2L O2; IV SL, FLUSHES WELL, DRAWS BACK BLOOD. ALLVYN RIGHT BUTTOCK, INTACT. RUE CONTINUES WITH PAIN WHEN BEING POSITIONED. PREVIOUS FX, SHE STATES. DAILY WEIGHT 77.5 BED WEIGHT, UP FROM 76.6 PREVIOUS. HAS HAD A MOIST NONPRODUCTIVE COUGH. PT STATES SHE CAN TALK IN SENTENCES COMPARED TO ADMISSION. PUREWICK CHANGED AT 0200. ABLE TO ASSIST WITH TURNING; STATES SHE DID SLEEP OFF AND ON.
--- NOTE | 2024-12-07 07:35 | NUR ---
RECIEVED SHIFT REPORT FROM KHOA. PT IS AWAKE IN BED, RESTING. DENIES NEEDS. CALL LIGHT IN REACH
--- NOTE | 2024-12-07 08:30 | NUR ---
MORNING ASSESSMENT COMPLETE. PT IS UP IN RECLINER EATING BREAKFAST. DENIES NEEDS. CALL LIGHT IN REACH. PT LUNGS CLEAR IN ALL LOBES, REMIANS ON 2L NC. NO DISCOMFORT.
--- NOTE | 2024-12-07 09:00 | NUR ---
Patient was assisted to BSC. Currently sitting up in their to eat breakfast. Doctor entered room for assessment.
[2024-12-07 09:18] VITALS: BP 145/70
[2024-12-07 09:42] VITALS: BP 145/70
[2024-12-07] MEDS ORDERED: DEXAMETHASONE6 MG PO (09:53)
[2024-12-07] MEDS ORDERED: PAXLOVID 150-11 EAC1 PO (09:53)
--- NOTE | 2024-12-07 10:15 | NUR ---
Spoke with Fiorella. She plans on dc to home today. She will contact her caregivers for a ride. She denies any needs to go home and states she has 02 at home. Home when orders completed.
--- NOTE | 2024-12-07 10:57 | NUR ---
CALL TO NELLI CAREGIVER, , SHE WAS INFORMED PT DISCHARGING TODAY. SHE WILL BE ABLE TO PICK HER UP TODAY AT 12PM. PRIMARY RN NOTIFIED, NELLI INFORMED PT WILL BE READY BY THEN.
--- NOTE | 2024-12-07 11:00 | NUR ---
Spoke with charge as they don't have cg phone number. Spoke with Fiorella and she would like her cg Mari called. Number obtained and given to Gina Anderson Rn.
--- NOTE | 2024-12-07 11:10 | NUR ---
DICUSSED DC PACKET WITH PT. ALL QUESTIONS ANSWERED. CALL LIGHT IN REACH.
[2024-12-07 12:07] VITALS: BP 157/99
== END 2024-12-07 12:23 | disposition home or self-care (01) | DRG 177 ==
LOC: ED 12:27 → MS 15:32
PROVIDERS: Emergency Medicine; Student in an Organized Health Care Education/Training Program; ADMIT Family Medicine; ATTEND Family Medicine
PROC: XW033E5 Introduction of Remdesivir Anti-infective into Peripheral Vein, Percutaneous Approach, New Technology Group 5 (ICD-10-PCS; principal; 2024-12-04)
DX: U07.1 COVID-19 (principal); J96.21 Acute and chronic respiratory failure with hypoxia; J81.1 Chronic pulmonary edema; N39.0 Urinary tract infection, site not specified; J44.9 Chronic obstructive pulmonary disease, unspecified; E11.9 Type 2 diabetes mellitus without complications; Z66 Do not resuscitate; M19.90 Unspecified osteoarthritis, unspecified site; Z96.661 Presence of right artificial ankle joint; I50.9 Heart failure, unspecified; I45.10 Unspecified right bundle-branch block; Z90.710 Acquired absence of both cervix and uterus; Z90.49 Acquired absence of other specified parts of digestive tract; Z99.81 Dependence on supplemental oxygen; Z87.19 Personal history of other diseases of the digestive system; Z90.89 Acquired absence of other organs; Z88.5 Allergy status to narcotic agent; Z88.2 Allergy status to sulfonamides; Z88.8 Allergy status to other drugs, medicaments and biological substances; Z79.51 Long term (current) use of inhaled steroids; Z79.52 Long term (current) use of systemic steroids; Z79.01 Long term (current) use of anticoagulants; Z87.891 Personal history of nicotine dependence; Z86.711 Personal history of pulmonary embolism; Z98.42 Cataract extraction status, left eye; Z98.41 Cataract extraction status, right eye; Z79.2 Long term (current) use of antibiotics
CPT/HCPCS: 36415; 51702; 71045; 80053; 83735; 83880; 84100; 84484; 85025; 85379; 87502; 93005; 93010; 93306; 94640; 94667; 94668; 94762; 94799; 97162; 97166; 97530; 97535; 99285-25; A9270; J0248; J1100; J1815; J1940; J7050; J7512; J8540; U0002

== ENCOUNTER 2024-12-19 10:30 | Emergency (ER) | payer MEDICARE, OTHER ==
[~2024-12-19] VITALS: Ht 162.6 cm; Wt 77.5 kg
[~2024-12-19 10:30] MED LIST changes: +DEXAMETHASONE6 MG PO; +PAXLOVID 150-11 EAC1 PO
--- OUTSIDE RECORDS SUMMARY | 2024-12-19 10:36 | XMS ---
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 Annie VISIT COUNT (12 MO.) [address] [facility] TOTAL 7 NOTE: Visits indicate total known visits. ED/UCC VISIT TRACKING (12 MO.) 12/19/2024 10:[address] [facility] [place] TYPE: Emergency COMPLAINT: - FALL 12/02/2024 12:28 [facility] [place] TYPE: Emergency COMPLAINT: - [...] - Chronic obstructive pulmonary disease, unspecified - senior care (current) use of anticoagulants - Nicotine dependence, unspecified, uncomplicated - Other skilled nursing (current) drug therapy - Personal history of pulmonary embolism - Type 2 diabetes mellitus without complications 04/17/2024 20:26 [facility] [place] TYPE: Emergency COMPLAINT: - CHEST PAIN DIAGNOSES: - Allergy status to narcotic agent - Allergy status to other drugs, medicaments and biological substances - Allergy status to sulfonamides - Chronic obstructive pulmonary disease, unspecified - senior care (current) use of anticoagulants - senior care (current) use of systemic steroids - Other chest pain - Other skilled nursing (current) drug therapy - Shortness of breath [...] Other skilled nursing (current) drug therapy - Secondary polycythemia - Type 2 diabetes mellitus without complications 02/26/2024 13:46 [facility] [place] TYPE: Emergency COMPLAINT: - SOB DIAGNOSES: - Age-related osteoporosis without current pathological fracture - Allergy status to analgesic agent - Allergy status to sulfonamides - Chronic obstructive pulmonary disease with (acute) exacerbation - oysterman (current) use of anticoagulants - oysterman (current) use of inhaled steroids - oysterman (current) use of oral hypoglycemic drugs - Nicotine dependence, unspecified, uncomplicated - Shortness of breath - Type 2 diabetes mellitus without complications - Unspecified osteoarthritis, unspecified site INPATIENT VISIT TRACKING (12 MO.) 12/02/2024 15:[address] [facility] [place] TYPE: Medical Surgical COMPLAINT: - PULMONARY EDEMA DIAGNOSES: - Acquired absence of both cervix and uterus - Acquired absence of both cervix and uterus - Acquired absence of other organs - Acquired absence of other organs - Acquired absence of other specified parts of digestive tract - Acquired absence of other specified parts of digestive tract - Acute and chronic respiratory failure with hypoxia - Acute and chronic respiratory failure with hypoxia - Allergy status to narcotic agent - Allergy status to narcotic agent - Allergy status to other drugs, medicaments and biological substances - Allergy status to other drugs, medicaments and biological substances - Allergy status to sulfonamides - Allergy status to sulfonamides - Cataract extraction status, left eye - Cataract extraction status, left eye - Cataract extraction status, right eye - Cataract extraction status, right eye - Chronic obstructive pulmonary disease, unspecified - Chronic obstructive pulmonary disease, unspecified - Chronic pulmonary edema - COVID-19 - COVID-19 - Dependence on supplemental oxygen - Dependence on supplemental oxygen - Do not resuscitate - Do not resuscitate - Heart failure, unspecified - Heart failure, unspecified - oysterman (current) use of antibiotics - senior care (current) use of antibiotics - senior care (current) use of anticoagulants - oysterman (current) use of anticoagulants - oysterman (current) use of inhaled steroids - oysterman (current) use of inhaled steroids - oysterman (current) use of systemic steroids - senior care (current) use of systemic steroids - Personal history of nicotine dependence - Personal history of nicotine dependence - Personal history of other diseases of the digestive system - Personal history of other diseases of the digestive system - Personal history of pulmonary embolism - Personal history of pulmonary embolism - Presence of right artificial ankle joint - Presence of right artificial ankle joint - Type 2 diabetes mellitus without complications - Type 2 diabetes mellitus without complications - Unspecified osteoarthritis, unspecified site - Unspecified osteoarthritis, unspecified site - Unspecified right bundle-branch block - Unspecified right bundle-branch block - Urinary tract infection, site not specified - Urinary tract infection, site not specified 11/29/2024 16:[address] [facility] [place] TYPE: Medical Surgical COMPLAINT: - SIRS,RESP FAILURE,UTI DIAGNOSES: - Acquired absence of other organs - Acquired absence of other organs - Acquired absence of other specified parts of digestive tract - Acquired absence of other specified parts of digestive tract - Age-related osteoporosis without current pathological fracture - Age-related osteoporosis without current pathological fracture - Allergy status to narcotic agent - Allergy status to narcotic agent - Allergy status to other drugs, medicaments and biological substances - Allergy status to other drugs, medicaments and biological substances - Allergy status to sulfonamides - Allergy status to sulfonamides - Cataract extraction status, left eye - Cataract extraction status, left eye - Cataract extraction status, right eye - Cataract extraction status, right eye - Chronic obstructive pulmonary disease with (acute) exacerbation - Chronic obstructive pulmonary disease with (acute) exacerbation - Do not resuscitate - Do not resuscitate - oysterman (current) use of anticoagulants - senior care (current) use of anticoagulants - oysterman (current) use of inhaled steroids - senior care (current) use of inhaled steroids - oysterman (current) use of oral hypoglycemic drugs - senior care (current) use of oral hypoglycemic drugs - Nicotine dependence, cigarettes, uncomplicated - Nicotine dependence, cigarettes, uncomplicated - Other manager long term care (current) drug therapy - Other skilled nursing (current) drug therapy - Other specified postprocedural states - Other specified postprocedural states - Personal history of pulmonary embolism - Personal history of pulmonary embolism - Presence of artificial limb (complete) (partial), unspecified - Presence of artificial limb (complete) (partial), unspecified - Presence of right artificial ankle joint - Presence of right artificial ankle joint - Respiratory failure, unspecified with hypoxia - Respiratory failure, unspecified with hypoxia - Sepsis, unspecified organism - Severe sepsis with septic shock - Severe sepsis with septic shock - Type 2 diabetes mellitus without complications - Type 2 diabetes mellitus without complications - Unspecified osteoarthritis, unspecified site - Unspecified osteoarthritis, unspecified site - Urinary tract infection, site not specified - Urinary tract infection, site not specified [email or web address]
[2024-12-19 11:28] LABS: BASOPHILS 0.5 % (0-2); EOSINOPHILS 0.7 % (0-6); HEMATOCRIT 49.3 % (35.0-50.0); HEMOGLOBIN 16.4 g/dL (12.0-18.0); LYMPHOCYTES 18.3 % (24-44); MCH 30.3 (27-36); MCHC 33.3 g/dl (30-36); MONOCYTES 6.5 % (0-12); PLATELET COUNT 163 K/uL (140-440); RBC 5.42 M/ul (4.3-5.7); RDW 15.2 (10.5-15.0)
[2024-12-19 11:37] LABS: INR 1.16 (0.80-1.30); PROTIME 14.7 Sec (11.2-14.2)
[2024-12-19 11:41] LABS: ALBUMIN 2.6 g/dL (3.4-5.0); ALBUMIN/GLOBULIN RATIO 0.62 (1.1-2.4); ANION GAP 16.4 (7-21); BILIRUBIN, TOTAL 0.5 mg/dL (0.2-1.0); BUN/CREATININE RATIO 22.89 (6.0-28.6); CALCIUM 8.8 mg/dL (8.5-10.1); CREATININE, SERUM 0.83 mg/dL (0.55-1.02); POTASSIUM 4.4 mmol/L (3.5-5.1); PROTEIN, TOTAL 6.8 g/dL (6.4-8.2)
[2024-12-19 12:15] VITALS: BP 131/82
--- NOTE | 2024-12-19 22:55 | EKG ---
[facility] [address] [place] [address] Signed Sinus tachycardia Low voltage QRS Right bundle branch block Abnormal ECG When compared with ECG of 03-DEC-2024 07:39, No significant change was found Confirmed by Arnulfo Ochoa MD () on 12/19/2024 10:55:07 PM Electronically Signed By: ARNULFO OCHOA MD 12/19/24 2255 PATIENT NAME: FABIAN RIOS Electrocardiogram DATE OF : 42 PHYSICIAN: ARNULFO OCHOA MD REPORT #: [id number] REPORT IS CONFIDENTIAL AND NOT TO BE RELEASED WITHOUT AUTHORIZATION
== END 2024-12-19 12:15 | disposition home or self-care (01) ==
LOC: ED 10:30
PROVIDERS: Emergency Medicine
DX: S70.01XA Contusion of right hip, initial encounter (principal); M25.561 Pain in right knee; R51.9 Headache, unspecified; M54.2 Cervicalgia; W18.39XA Other fall on same level, initial encounter; J44.9 Chronic obstructive pulmonary disease, unspecified; E11.9 Type 2 diabetes mellitus without complications; F17.200 Nicotine dependence, unspecified, uncomplicated; Z88.2 Allergy status to sulfonamides; Z88.8 Allergy status to other drugs, medicaments and biological substances; Z88.5 Allergy status to narcotic agent; Z79.899 Other long term (current) drug therapy; Z79.01 Long term (current) use of anticoagulants
CPT/HCPCS: 36415; 70450; 72125; 73502; 73560; 73610; 73630; 80053; 85025; 85610; 93005; 93010; 99284-25; G0480

== ENCOUNTER 2025-02-08 11:36 | Emergency (ER) | payer MEDICARE, OTHER ==
[~2025-02-08] VITALS: Ht 162.6 cm; Wt 81.6 kg
[2025-02-08 13:07] LABS: BASOPHILS 0.4 % (0-2); EOSINOPHILS 2.1 % (0-6); HEMATOCRIT 49.4 % (35.0-50.0); HEMOGLOBIN 16.5 g/dL (12.0-18.0); LYMPHOCYTES 38.8 % (24-44); MCHC 33.4 g/dl (30-36); MONOCYTES 7.3 % (0-12); NEUTROPHILS 51.4 % (39-80); PLATELET COUNT 229 K/uL (140-440); RBC 5.49 M/ul (4.3-5.7); RDW 16.2 (10.5-15.0)
[2025-02-08 13:22] LABS: BILIRUBIN, URINE NEGATIVE (negative); BLOOD/HGB, URINE LARGE (Negative); KETONE, URINE NEGATIVE (Negative); LEUK ESTERASE, URINE SMALL (negative); NITRITE, URINE POSITIVE (negative)
[2025-02-08 13:33] LABS: BACTERIA, URINE 4+ /hpf (negative); CASTS, URINE NONE SEEN \\lpf; COLLECTION TYPE, URINE CATH; CRYSTALS, URINE NONE SEEN (0-1+); EPITHELIAL CELLS, URINE 0 /lpf (0-1+); RED BLOOD CELLS, URINE >50 /hpf (0-5); REFLEX CULTURE, URINE Yes (No); WHITE BLOOD CELLS, URINE 41-50 /HPF (0-5)
[2025-02-08 13:33] LABS: ALBUMIN 3.2 g/dL (3.4-5.0); ALBUMIN/GLOBULIN RATIO 0.8 (1.1-2.4); ANION GAP 9.7 (7-21); BILIRUBIN, TOTAL 0.4 mg/dL (0.2-1.0); BUN/CREATININE RATIO 14.42 (6.0-28.6); CALCIUM 9.2 mg/dL (8.5-10.1); CREATININE, SERUM 1.04 mg/dL (0.55-1.02); POTASSIUM 4.7 mmol/L (3.5-5.1); PROTEIN, TOTAL 7.2 g/dL (6.4-8.2)
[2025-02-08] MEDS ORDERED: CEPHALEXIN500 M1 PO (13:41)
[2025-02-08] MEDS ORDERED: CEFTRIAXONE SODIUM 1 GM in SODIUM CHLORIDE 0.9% 100 ML IV ONE (13:45)
[2025-02-08 15:30] VITALS: BP 132/70
== END 2025-02-08 15:30 | disposition home or self-care (01) ==
LOC: ED 11:36
PROVIDERS: Emergency Medicine
DX: N39.0 Urinary tract infection, site not specified (principal); E11.9 Type 2 diabetes mellitus without complications; M19.90 Unspecified osteoarthritis, unspecified site; J44.9 Chronic obstructive pulmonary disease, unspecified; F17.200 Nicotine dependence, unspecified, uncomplicated; Z88.2 Allergy status to sulfonamides; Z88.5 Allergy status to narcotic agent
CPT/HCPCS: 36415; 80053; 81001; 85025; 87088; 96365; 99284-25; J0696

== ENCOUNTER 2025-08-12 11:13 | Emergency (ER) | payer MEDICARE, OTHER ==
[~2025-08-12] VITALS: Ht 162.6 cm; Wt 80.0 kg
[~2025-08-12 11:13] MED LIST changes: +BUDESONIDE-FO10.2 G1 IH; +CEPHALEXIN500 M1 PO; +TYLENOL325 MG PO
[2025-08-12] MEDS ORDERED: LIDODERM1 EACH TOP (13:56)
[2025-08-12 14:28] VITALS: BP 124/78
== END 2025-08-12 13:56 | disposition home or self-care (01) ==
LOC: ED 11:13
DX: S83.91XA Sprain of unspecified site of right knee, initial encounter (principal); W18.30XA Fall on same level, unspecified, initial encounter; E11.9 Type 2 diabetes mellitus without complications; F17.200 Nicotine dependence, unspecified, uncomplicated; Z88.2 Allergy status to sulfonamides; Z88.8 Allergy status to other drugs, medicaments and biological substances
CPT/HCPCS: 73560; 99283

== ENCOUNTER 2025-09-09 13:26 | Inpatient (IN) | payer MEDICARE, OTHER ==
[~2025-09-09] VITALS: Ht 162.6 cm; Wt 83.7 kg
--- OUTSIDE RECORDS SUMMARY | ~2025-09-09 | XMS | Continuity of Care Document ---
Demographics + + + | Address | [address] | | | [place] [address] | + + + | Preferred Language | Unknown | + + + | Marital Status | | + + + | Hindu Affiliation | Unknown | + + + | Race | White | + + + | Ethnic Group | Not or | + + + Author + + + | Author | [facility] | + + + | Organization | [facility] | + + + | Address | [address] | | | [place] [address] | + + + | Phone | | + + + Care Team Providers + + + + | Care Fish Receiver Name | Role | Phone | + + + + Unavailable | Unavailable | + + + + Unavailable | Unavailable | + + + + Allergies and Intolerances + + + + + + | date | description | facility | reaction | severity | + + + + + + | 2025-08-12 | meloxicam | [facility] | (no reaction) | (no severity) | | 00:00 | | [facility] | | | + + + + + + | 2025-08-12 | oxycodone | [facility] - | (no reaction) | (no severity) | | 00:00 | | [facility] | | | + + + + + + Encounters No information. Functional Status No information. Immunizations + + + + | date | description | facility | + + + + | (no date) | No vaccine administered | [facility] | | | | [facility] | + + + + Medications + + + + | date | description | facility | + + + + | 2025-08-12 00:00 | lidocaine 0.05 MG/MG | [facility] | | | Medicated Patch [Lidoderm] | [facility] | + + + + | (no date) | 120 ACTUAT budesonide 0.16 | [facility] | | | MG/ACTUAT / formoterol | [facility] | | | fumarate 0 | | + + + + | (no date) | budesonide 0.16 MG/ACTUAT | [facility] | | | / formoterol fumarate | [facility] | | | 0.0045 MG/AC | | + + + + | (no date) | apixaban 5 MG Oral Tablet | [facility] | | | [Eliquis] | [facility] | + + + + | (no date) | empagliflozin 10 MG Oral | [facility] | | | Tablet [Jardiance] | [facility] | + + + + | (no date) | 7 ACTUAT umeclidinium | [facility] | | | 0.0625 MG/ACTUAT Dry Powder | [facility] | | | Inhaler [I | | + + + + | (no ) | naproxen 250 MG Oral | [facility] | | | Tablet | [facility] | + + + + | (no ) | azithromycin 250 MG Oral | [facility] | | | Tablet [Zithromax] | [facility] | + + + + | (no ) | metronidazole 0.0075 MG/MG | [facility] | | | Topical Gel | [facility] | + + + + | (no ) | acetaminophen 325 MG Oral | [facility] | | | Tablet | [facility] | + + + + | (no ) | cholecalciferol 0.125 MG | [facility] | | | Oral Tablet | [facility] | + + + + | (no date) | [id number] 200 ACTUAT | [facility] | | | albuterol 0.09 MG/ACTUAT | [facility] | | | Metered Dose I | | + + + + | (no date) | 12 HR guaifenesin 600 MG | [facility] | | | Extended Release Oral | [facility] | | | Tablet [Mucin | | + + + + Problems + + + + | date | description | facility | + + + + | 2025-08-12 00:00 | Right knee sprain | [facility] | | | | [facility] | + + + + Procedures No information. Results/Labs No information. Social History + + + + | date | description | facility | + + + + | (no date) | Current every day smoker | [facility] | | | | [facility] | + + + + Vital Signs No information."
--- OUTSIDE RECORDS SUMMARY | ~2025-09-09 | XMS | Continuity of Care Document ---
Demographics + + + | Address | [address] | | | [place] [address] | + + + | Preferred Language | Unknown | + + + | Marital Status | | + + + | Buddhism Affiliation | Unknown | + + + | Race | White | + + + | Ethnic Group | Not or | + + + Author + + + | Author | [facility] | + + + | Organization | [facility] | + + + | Address | [address] | | | [place] [address] | + + + | Phone | | + + + Care Team Providers + + + + | Care Thread Grinder Name | Role | Phone | + [...] (no date) | No vaccine administered | [facility] | | | | [facility] | + + + + Medications + + + + | date | description | facility | + + + + | 2025-08-12 00:00 | lidocaine 0.05 MG/MG | [facility] | | | Medicated Patch [Lidoderm] | [facility] | + + + + | (no date) | 120 ACTUAT budesonide 0.16 | [facility] | | | MG/ACTUAT / formoterol | [facility] | | | fumarate 0 | | + + + + | (no date) | budesonide 0.16 MG/ACTUAT | [facility] | | | / formoterol fumarate | [facility] | | | 0.0045 MG/AC | | + + + + | (no date) | apixaban 5 MG Oral Tablet | [facility] | | | [Eliquis] | [facility] | + + + + | (no date) | empagliflozin 10 MG Oral | [facility] | | | Tablet [Jardiance] | [facility] | + + + + | (no date) | 7 ACTUAT umeclidinium | [facility] | | | 0.0625 MG/ACTUAT Dry Powder | [facility] | | | Inhaler [I | | + + + + | (no ) | naproxen 250 MG Oral | [facility] | | | Tablet | [facility] | + + + + | (no ) | azithromycin 250 MG Oral | [facility] | | | Tablet [Zithromax] | [facility] | + + + + | (no ) | metronidazole 0.0075 MG/MG | [facility] | | | Topical Gel | [facility] | + + + + | (no ) | acetaminophen 325 MG Oral | [facility] | | | Tablet | [facility] | + + + + | (no ) | cholecalciferol 0.125 MG | [facility] | | | Oral Tablet | [facility] | + + + + | (no date) | [id number] 200 ACTUAT | [facility] | | | albuterol 0.09 MG/ACTUAT | [facility] | | | Metered Dose I | | + + + + | (no date) | 12 HR guaifenesin 600 MG | [facility] | | | Extended Release Oral | [facility] | | | Tablet [Mucin | | + + + + Problems + + + + | date | description | facility | + + + + | 2025-08-12 00:00 | Right knee sprain | [facility] | | | | [facility] | + + + + Procedures No information. Results/Labs No information. Social History + + + + | date | description | facility | + + + + | (no date) | Current every day smoker | [facility] | | | | [facility] | + + + + Vital Signs No information."
[~2025-09-09 13:26] MED LIST changes: -TYLENOL325 MG PO
[2025-09-09] MEDS ORDERED: ALBUTEROL/IPRATROPIUM 3 ML NEB INH PRN ×3 (13:30→18:15)
[2025-09-09] MEDS ORDERED: SODIUM CHLORIDE 0.9% 1,000 ML IV ONE ×2 (14:00→16:45)
[2025-09-09 14:15] LABS: BASOPHILS 0.3 % (0.1-1.2); EOSINOPHILS 0.4 % (0.7-5.8); LYMPHOCYTES 22.1 % (19.3-51.7); MCH 29.0 PG (25.6-32.2); MCHC 30.6 g/dL (32.2-35.5); MCV 94.9 fL (79.4-94.8); MONOCYTES 8.7 % (4.7-12.5); NEUTROPHILS 68.1 % (34.0-71.1); RBC 5.69 M/uL (3.93-5.22)
[2025-09-09 14:55] LABS: LACTIC ACID, BLOOD 3.3 mmol/L (0.4-2.0)
[2025-09-09 14:59] LABS: ALT (SGPT) 19.0 U/L (14-59); AST (SGOT) 23.0 U/L (15-37); GLOMERULAR FILTRATION RATE,EST 54.0 mL/min (>60); PROTEIN, TOTAL 7.3 g/dL (6.4-8.2); UREA NITROGEN 8.0 mg/dL (7-18)
[2025-09-09] MEDS ORDERED: ALBUTEROL SULFATE 0.083% 3 ML VIAL INH ONE (15:15)
[2025-09-09 16:31] LABS: LACTIC ACID, BLOOD 3.1 mmol/L (0.4-2.0)
[2025-09-09 16:57] LABS: BLOOD/HGB, URINE LARGE (Negative); KETONE, URINE TRACE (Negative); LEUK ESTERASE, URINE NEGATIVE (negative); NITRITE, URINE POSITIVE (negative)
[2025-09-09 17:06] LABS: BACTERIA, URINE 1+ /hpf (negative); CASTS, URINE NONE SEEN \\lpf; CRYSTALS, URINE NONE SEEN (0-1+); EPITHELIAL CELLS, URINE SQUAMOUS 2+ /lpf (0-1+); REFLEX CULTURE, URINE No (No)
[2025-09-09] MEDS ORDERED: SODIUM CHLORIDE 0.9% 1,000 ML IV SCH ×2 (17:45→19:15)
[2025-09-09] MEDS ORDERED: ACETAMINOPHEN 325 MG TAB PO PRN (17:45)
[2025-09-09] MEDS ORDERED: MAGNESIUM HYDROXIDE 30 ML UDC PO PRN (17:45)
[2025-09-09] MEDS ORDERED: PANTOPRAZOLE SODIUM 40 MG TABEC PO SCH (17:47)
[2025-09-09] MEDS ORDERED: ALBUTEROL SULFATE 8 GM INH INH PRN (18:00)
[2025-09-09] MEDS ORDERED: OZEMPIC0.25 MG/02 SUB-Q (18:23)
[2025-09-09] MEDS ORDERED: IPRAT-ALBUT 0.5-3 ML INH (18:24)
--- NOTE | 2025-09-09 18:55 | NUR ---
PT ARRIVES TO CCU VIA STRETCHER WITH MS RN - PT AWAKE AND ALERT, TRANSFERED TO BED WITH SLIDER SHEET. PT ON 3L OXYMASK ON ARRIVAL, SPO2 92%. PT PROVIDED TURKEY SANDWHICH PER REQUEST AFTER OBTAINING CBG. MD AT BEDSIDE - VERBAL ORDERS RECEIVED FOR ADDITIONAL BOLUS OF NS AND [facility] SS COVERAGE/CHECKS. CALL LIGHT IN REACH.
[2025-09-09 19:09] VITALS: BP 135/81
[2025-09-09] MEDS ORDERED: IBLOOD GLUCOSE TEST STRIP 1 EA TEST XX PRN (19:15)
[2025-09-09] MEDS ORDERED: DEXTROSE 5% 1,000 ML IV PRN (19:15)
[2025-09-09] MEDS ORDERED: DEXTROSE 50% 50 ML SYR IV PRN ×2 (19:15)
[2025-09-09] MEDS ORDERED: GLUCAGON,HUMAN RECOMBINANT 1 MG/ML VIAL SUB-Q PRN (19:15)
[2025-09-09 20:00] VITALS: BP 118/79
[2025-09-09] MEDS ORDERED: BUDESONIDE 0.25 MG/2 ML NEB INH SCH (20:00)
[2025-09-09] MEDS ORDERED: BUDESONIDE 0.5 MG/2 ML VIAL INH SCH (20:00)
[2025-09-09 21:00] VITALS: BP 90/67
[2025-09-09] MEDS ORDERED: MELATONIN 3 MG TAB PO PRN (21:00)
[2025-09-09] MEDS ORDERED: IBLOOD GLUCOSE TEST STRIP 1 EA TEST XX SCH (21:00)
[2025-09-09] MEDS ORDERED: APIXABAN 5 MG TAB PO SCH (21:00)
[2025-09-09] MEDS ORDERED: INSULIN LISPRO 100 UNIT/ML ML SUB-Q SCH (21:00)
[2025-09-09 22:00] VITALS: BP 108/72
[2025-09-09 23:00] VITALS: BP 118/77
[2025-09-10] VITALS (16 sets, daily range): BP systolic 95–162; BP diastolic 53–90
[2025-09-10 05:38] LABS: BASOPHILS 0.1 % (0.1-1.2); EOSINOPHILS 0 % (0.7-5.8); LYMPHOCYTES 10.9 % (19.3-51.7); MCH 29.3 PG (25.6-32.2); MCHC 30.6 g/dL (32.2-35.5); MCV 95.7 fL (79.4-94.8); MONOCYTES 4.6 % (4.7-12.5); NEUTROPHILS 84.0 % (34.0-71.1); RBC 5.09 M/uL (3.93-5.22)
[2025-09-10 05:59] LABS: ALT (SGPT) 17.0 U/L (14-59); AST (SGOT) 22.0 U/L (15-37); GLOMERULAR FILTRATION RATE,EST 65.0 mL/min (>60); PROTEIN, TOTAL 6.5 g/dL (6.4-8.2); UREA NITROGEN 14.0 mg/dL (7-18)
--- NOTE | 2025-09-10 07:32 | NUR ---
Pt alert and oriented x4- has a wet barky productive cough- able to stand and pivot to the commode w/ x2 assist- oxygen maintainted with 3L NC/simple mask
[2025-09-10] MEDS ORDERED: predniSONE 20 MG TAB PO SCH (09:00)
--- NOTE | 2025-09-10 09:15 | NUR ---
INTO ROOM FOR MEDICATION ADMINISTRATION. PT SITTING UP IN BED, WATCHING TV, NO DISTRESS NOTED. PT REFUSED PROTONIX, STATES "I DON'T NEED THAT." BREAKFAST TRAY CLEARED FROM ROOM, CAREGIVER AT BEDSIDE. CALL LIGHT IN REACH
--- NOTE | 2025-09-10 10:05 | NUR ---
DR. WELSH IN ROOM TO SEE PATIENT AROUND 0900 AND DISCUSS PLAN OF CARE. PATIENT TO STAY IN HOSPITAL ANOTHER DAY OR TWO. PT IS VERY WORRIED ABOUT HER HOME AND STATES THAT SHE HAS PEOPLE AROUND HER HOME THAT WILL COME AND TAKE THINGS. PT ALSO HAS HER CAREGIVER NICKOLAS WHO COMES IN FOR A SHORT VISITS AND REASSURES HER THAT SOMEONE IS WATCHING HER PROPERTY. PT REPORTS NOT FEELING WELL X1-2 DAYS AT HOME PRIOR TO COMING IN. IV ABX STARTED AND INITIALLY LEFT AC SITE HURTING BUT SITE DOES FLUSH WELL AND PULLS BACK BLOOD. SMALL AMOUNT OF DRIED BLOOD AT INSERTION SITE AND BRUISING NOTED BUT STILL WORKING WELL, AND NOW NOT HURTING WITH SALINE FLUSH. WILL CONTINUE TO MONITOR. PT MAY NEED U/S IV START SHE IS A HARD IV START. PT ON 1 L NC AND DOES NOT WEAR 02 AT HOME. WILL CONTINUE TO MONITOR.
--- NOTE | 2025-09-10 11:17 | NUR ---
UR CLINICAL REVIEW: 2 MN FOR VERSALUS-PER BLOCK CUTTER MEETS OBS FOR COPD EXACERBATION WITH NEED FOR OXYGEN, STERIODS AND RT CARE MEDICARE OBS 09/09/25 @ 1327 ORDER MATCHES REG NO AUTH REQUIRED PER MEDICARE GUIDELINES DISCHARGE TO HOME WHEN STABLE. ADD 2 MN 09/11/25
--- NOTE | 2025-09-10 11:51 | NUR ---
PATIENT UP IN CHAIR AFTER WORKING WITH PHYS THERAPY. PATIENT AGREEABLE BUT RELUCTANT TO STAY IN CHAIR UNTIL LUNCH TIME SHE STATES SHE IS TIRED FROM LAST NIGHT. HR IN THE 100s AT THIS TIME. PT REMAINS ON 1 L NC.
[2025-09-10] MEDS ORDERED: PHARMACY RENAL DOSE ADJUSTMENT 1 DOSE MISC PO SCH (12:00)
--- NOTE | 2025-09-10 14:10 | NUR ---
Spoke with Fiorella.She lives in a house in [place]. She has difficulty getting in or out of her home without assistance. She has two cg from the state that assist her. Neighbors also assist her if needed. Pt has multiple pieces of DME. She uses a walker in the home and wc when going out. She has 02 from [facility] and would like to have a portable concentrator as the tanks make it difficult to go to her appointments. Pt plans on dc to home. She states she is financially ok and no concerns for safety.
--- NOTE | 2025-09-10 14:35 | NUR ---
PATIENT RESTING IN BED AT THIS TIME AND HEART RATE CURRENTLY 98. SP02 DROPPING WHILE RESTING ON 1 LNC, AND THEREFORE INCREASED TO 3 L NC, BUT THEN CHANGED TO OXYMASK SHE APPEARS TO BE MOUTH BREATHING WHILE SLEEPING. SP02 NOW 94% ON 3L AND WILL CONTINUE TO MONITOR. PUREWICK IN PLACE. CALL LIGHT WITHIN REACH.
--- NOTE | 2025-09-10 18:44 | NUR ---
NEW PUREWICK PLACED. IVF STARTED AT 75 ML/HR. HR REMAINS AROUND 100. PT ON 2 L OXYMASK AT 97% AND WILL CONTINUE TO TITRATE DOWN.
--- NOTE | 2025-09-10 20:08 | NUR ---
Pt drowsy but oriented- much more lethargic and slow to respond- notified, her normal schedule is to sleep during the day and stay awake at night so she needs to sleep- verbal orders not to bother her if she is asleep and to get a VBG in the morning
[2025-09-11] VITALS (13 sets, daily range): BP systolic 108–159; BP diastolic 61–81
--- NOTE | 2025-09-11 03:11 | NUR ---
AFTER PTS TX THE PT BECAME VERY AGITATED SAYING SHE SAW SOMETHING ON THE TV AND WAS WANTING THE NURSE TO STAY IN THE ROOM AND CALL THE POLICE LAB IS COMING DOWN TO DRAW LABS SO WE CAN CHECK TO SEE IF SHE IS RETAING C02 WILL CONTINUE TO MONITOR
[2025-09-11 04:22] LABS: BASOPHILS 0.1 % (0.1-1.2); EOSINOPHILS 0.1 % (0.7-5.8); LYMPHOCYTES 16.9 % (19.3-51.7); MCH 29.3 PG (25.6-32.2); MCHC 30.2 g/dL (32.2-35.5); MCV 96.9 fL (79.4-94.8); MONOCYTES 7.4 % (4.7-12.5); NEUTROPHILS 74.9 % (34.0-71.1); RBC 5.09 M/uL (3.93-5.22)
[2025-09-11 05:05] LABS: PHOSPHORUS, INORGANIC 4.0 mg/dL (2.5-4.9)
[2025-09-11 05:07] LABS: ALT (SGPT) 20.0 U/L (14-59); AST (SGOT) 15.0 U/L (15-37); GLOMERULAR FILTRATION RATE,EST 64.0 mL/min (>60); PROTEIN, TOTAL 6.2 g/dL (6.4-8.2); UREA NITROGEN 20.0 mg/dL (7-18)
--- NOTE | 2025-09-11 07:30 | NUR ---
report from anastasia rn, pt in room in bed finishing a neb tx with resp. therapy. alert and oriented. this rn assisted pt to trsf to form meal with stand/pivot transfer. pt on 0.5l oxygen nc for sats 93%. sitting up eating meal - able to cough up thick sputum in to tissure. pt has call light in reach. c/o gen. pain all over, legs are gen. swollen and noticeable. iv x2 wnl. ordered oatmeal for pt per her request.
--- NOTE | 2025-09-11 08:23 | NUR ---
vitals complete, bed linen changed - pt continues up in chair for meal. call light in reach.
--- NOTE | 2025-09-11 08:59 | NUR ---
dr mtz here with this rn in pt rm. review vitals and pt activity. aware that rn worked with pt on RT trumpet for lung exercises. 0.5 l nc oxygen needs. OT therapy in with pt and skidder lever operator for am cares, linen gown change and bathroom trip. dr rouse for trsf to med surg.
--- NOTE | 2025-09-11 09:45 | NUR ---
Spoke with Fiorella. She is feeling better. Updated Dr. Godwin signed and RX for a portable concentrator and I will fax it to [place] where she gets her 02. I also updated Dr. Godwin feels he is too far away to be her pcp. I did see Dr. Montanez in the clinic yesterday and she is willing to transfer this pt to her case load. I spoke with the district loss prevention manager and pt has an appt Sep 26 at 1:20. Appt added to dc instructions. Pt is fine with this and states concern she doesn't want to hurt any feeling, but "I cannot stand my current Dr. I was assigned too after Dr. Ernandez left." I let her know everone at the clinic are professionals and understand. Pt denies other needs.
--- NOTE | 2025-09-11 10:37 | NUR ---
REPORT RECEIVED FROM CCU RN MERI. PATIENT TRANSPORTED TO MED SURG BY CHAIR. CAREGIVER, NICKOLAS IS IN THE ROOM WITH THE PATIENT. VITAL SIGNS TAKEN RIGHT BEFORE MOVING OVER. CALL LIGHT AND PERSONAL BELONGIGNS ARE WITHIN REACH.
--- NOTE | 2025-09-11 10:45 | NUR ---
pt up in chair - caregiver renetta visiting pt. vitals taken wnl. pt belongings from closet and bed moved to room 111 med surg. report to Margarita stallworth, pt moved via chair to new room all questions answered and no needs at transfer.
--- NOTE | 2025-09-11 11:02 | NUR ---
Spoke with Fiorella and her CG. Confirmed her cg can transport her to her appt on the .
--- NOTE | 2025-09-11 12:22 | NUR ---
PATIENT IS LYING IN BED WITH EYES OPEN AND RESPIRATIONS ARE EVEN AND UNLABORED. NC IN PLACE. LUNCH TRAY SET UP IN FRONT OF THE PATIENT. CALL LIGHT AND PERSONAL BELONGINGS ARE WITHIN REACH.
[2025-09-11] MEDS ORDERED: TYLENOL325 MG PO (13:05)
--- NOTE | 2025-09-11 13:14 | NUR ---
GALDINOT IN BED AT THIS TIME. RETAIL BANKER CHARTED VITALS AND I&O'S. CALL LIGHT WITHIN REACH, NO FURTHER NEEDS.
--- NOTE | 2025-09-11 13:31 | NUR ---
UR CONCURRENT REVIEW: 2 MN FOR VERSALUS-PER PLATE SENSITIZER MEETS INPT FOR COPD WITH NEED FOR BIPAP, ET CARE, SUPPLEMENTAL OXYGEN AND IVF MEDICARE OBS TO INPT 09/11/25 ORDER MATCHES REG NO AUTH REQUIRED PER MEDICARE GUIDELINES DISCHARGE TO HOME WITH CG WHEN STABLE 09/12/25 DC REVIEW
--- NOTE | 2025-09-11 13:46 | NUR ---
PATIENT IS LYING IN BED WITH EYES CLOSED. PATIENT WITH EYES CLOSED AND RESPIRATIONS ARE EVEN AND UNLABORED. NC IN PLACE. PATIENT IS TALKING TO HERSELF IN HER SLEEP. CALL LIGHT AND PERSONAL BELONGINGS ARE WITHIN REACH.
--- NOTE | 2025-09-11 14:07 | NUR ---
PATIENT IS LYING IN BED WITH EYES OPEN AND RESPIRATIONS ARE EVEN AND UNLABORED. NC IN PLACE. PATIENT IS TALKING ON THE PHONE. NS CONTINUES TO INFUSE AT 75 ML/HR. CALL LIGHT AND PERSONAL BELONGINGS ARE WITHIN REACH.
--- NOTE | 2025-09-11 14:21 | NUR ---
PATIENT CALLED FOR HELP WITH HER REMOTE. PATIENT IS LAYING IN BED. CALL LIGHT IS WITHIN REACH AND NO FURTHER NEEDS AT THIS TIME.
--- NOTE | 2025-09-11 14:50 | NUR ---
PATIENT CALLED TO USE BATHROOM. THIS SIMULATION DEVELOPER IN TO ASSIST. PATIENT UP TO BSC AND BACK TO BED, 1PA. JILL CARE, NEW PUREWICK IN PLACE. CALL LIGHT IN REACH. NO FURTHER NEEDS AT THIS TIME.
--- NOTE | 2025-09-11 15:03 | NUR ---
PATIENT IS LYING IN BED WITH EYES OPEN AND RESPIRATIONS ARE EVEN AND UNLABORED. NC IN PLACE. PATIENT IS WATCHING TV. CALL LIGHT AND PERSONAL BELONGINGS ARE WITHIN REACH.
--- NOTE | 2025-09-11 17:16 | NUR ---
PATIENT IS LYING IN BED WITH HOB ELEVATED. PATIENT WITH EYES OPEN AND RESPIRATIONS ARE EVEN AND UNLABORED AT THIS TIME. NC IN PLACE. PATIENT IS EATING DINNER. CALL LIGHT AND PERSONAL BELONGINGS ARE WITHIN REACH.
--- NOTE | 2025-09-11 17:35 | NUR ---
medications reconciled using pharmacy records, PCP note and caregiver interview
--- NOTE | 2025-09-11 17:37 | NUR ---
PATIENT IN BED AT THIS TIME. TOPOGRAPHY TECHNICIAN CHARTED VITALS AND I&O'S. CALL LIGHT WITHIN REACH, NO FURTHER NEEDS.
--- NOTE | 2025-09-11 18:04 | NUR ---
PATIENT IS LYING IN BED WITH HOB ELEVATED. PATIENT WITH EYES OPEN AND RESPIRATIONS ARE EVEN AND UNLABORED. PATIENT IS ON ROOM AIR WITH THE CPOX AT BEDSIDE. PATIENT WITH CAREGIVER AT BEDSIDE. PATIENT REMAINS ON TELEMETRRY AND IS IN SINUS TACHYCARDIA.
--- NOTE | 2025-09-11 19:15 | NUR ---
RECEIVED REPORT FROM PRECIOUS NOEL. PT REPORTS NO NEEDS AT THIS TIME, CALL LIGHT WITHIN REACH, WHITEBOARD UPDATED. SPOKE WITH PATIENT ABOUT THE PLAN FOR THE NIGHT, QUESTIONS ANSWERED.
--- NOTE | 2025-09-11 21:18 | NUR ---
PT REPORTS HER LAC IV HURTS WITH FLUSH AND PALPATION. IV REMOVED BY NNAMDI PENA. PT TOLERATED WELL, CATH TIP IN TACT. CALL LIGHT WITHIN REACH.
--- NOTE | 2025-09-11 21:41 | NUR ---
PT CALLS NURSES STATION TO REQUEST TO TAKE OFF CPAP. PT ASSISTED WITH REMOVIGN CPAP, NEW FRESH ICE WATER GIVEN. NO OTHER NEEDS AT THIS TIME, CALL LIGHT WITHIN REACH.
--- NOTE | 2025-09-11 22:02 | NUR ---
PT ON RA, CPOX AT BEDSIDE SATS AT 90%. REPORTS NO NEEDS AT THIS TIME, CALL LIGHT WITHIN REACH.
--- NOTE | 2025-09-11 23:14 | NUR ---
PT REPORTS SHE NO LONGER WANTS TO TRY THE CPAP FOR THE NIGHT. PT ON RA SATS AT 90%. LIGHT DIMMED, CALL LIGHT WITHIN REACH, PT WATCHING TV.
--- NOTE | 2025-09-11 23:22 | NUR ---
PT REPOSITIONED WITH PILLOW UNDER R SIDE, TOLERATED WELL. NO OTHER NEEDS AT THIS TIME, PT WATCHING TV, CALL LIGHT WITHIN REACH.
[2025-09-12] VITALS (11 sets, daily range): BP systolic 110–158; BP diastolic 54–92
--- NOTE | 2025-09-12 00:14 | NUR ---
PT CALLS NURSES STATION REGARDING QUESTION ABOUT CPOX, ANSWERED. NO OTHER NEEDS AT THIS TIME, CALL LIGHT WITHIN REACH.
--- NOTE | 2025-09-12 01:23 | NUR ---
PTS VS TAKEN, PURWICK CHANGED, REPOSITIONED WITH PILLOW UNDER L SIDE. NO NEEDS AT THIS TIME, CALL LIGHT WITHIN REACH.
--- NOTE | 2025-09-12 01:29 | NUR ---
AIRCRAFT AIR CONDITIONING MECHANIC AT BEDSIDE TAKING VITALS, PT GIVEN WARM BLANKET, REPORTS NO OTHER NEEDS AT THIS TIME, CALL LIGHT WITHIN REACH.
--- NOTE | 2025-09-12 03:23 | NUR ---
PT LAYING WITH EYES CLOSED, UNLABORED BREATHING. PT ON RA WITH CPOX AT BEDSIDE, SATS AT 91%. CALL LIGHT WITHIN REACH, ROOM NEAR NURSES STATION.
--- NOTE | 2025-09-12 04:01 | NUR ---
PT REPOSITIONED ON BACK, PT REQUESTING SNACKS, CHEESE STICK AND GRANOLA BAR GIVEN. NO OTHER NEEDS AT THIS TIME, CALL LIGHT WITHIN REACH.
--- NOTE | 2025-09-12 05:12 | NUR ---
PTS VS TAKEN, PURWICK CANISTER EMPTIED. PT REPORTS NO NEEDS AT THIS TIME, O2 SATS WITHIN 88-92% RANGE ON RA. CALL LIGHT WITHIN REACH. I &OS CHARTED.
[2025-09-12 05:33] LABS: BASOPHILS 0.3 % (0.1-1.2); EOSINOPHILS 0.5 % (0.7-5.8); LYMPHOCYTES 25.7 % (19.3-51.7); MCH 28.9 PG (25.6-32.2); MCHC 30.6 g/dL (32.2-35.5); MCV 94.5 fL (79.4-94.8); MONOCYTES 9.7 % (4.7-12.5); NEUTROPHILS 63.2 % (34.0-71.1); RBC 4.95 M/uL (3.93-5.22)
[2025-09-12 06:01] LABS: ALT (SGPT) 13.0 U/L (14-59); AST (SGOT) 24.0 U/L (15-37); GLOMERULAR FILTRATION RATE,EST 69.0 mL/min (>60); PROTEIN, TOTAL 6.2 g/dL (6.4-8.2); UREA NITROGEN 22.0 mg/dL (7-18)
--- NOTE | 2025-09-12 07:12 | NUR ---
RECIEVED REPORT FROM PRECIOUS JOHNSON. PT IS RESTING IN BED ON R SIDE, EYES CLOSED AND RR EVEN AND UNLABORED. CPOX AT BEDSIDE. CALL LIGHT AND PERSONAL BELONGINGS ARE WITHIN REACH.
--- NOTE | 2025-09-12 09:07 | NUR ---
OT WORKING WITH PT AT THIS TIME.
--- NOTE | 2025-09-12 09:30 | NUR ---
PT SITTING UP IN CHAIR. EYES OPEN, RR EVEN AND UNLABORED. CPOX IS AT BESIDE. CALL LIGHT AND PERSONAL BELONGINGS ARE WITHIN REACH
--- NOTE | 2025-09-12 09:47 | NUR ---
PATIENT WORKED WITH OT AND BRUSHED THEIR TEETH, WASHED THEIR FACE, AND USED THE BATHROOM. PATIENT IS SITTING UP IN THE RECLINER.
--- NOTE | 2025-09-12 10:31 | NUR ---
PATIENT IS SITTING IN THE CHAIR WITH CPOX AT BEDSIDE. PATIENT IS ON ROOM AIR. IV SITE FLUSHED WITH 10 ML NORMAL SALINE AND IS SALINE LCOKED. IV DRESSING IS CLEAN, DRY, AND INTACT. PATIENT NICKOLAS RO IS SITTING ON THE COUCH. NNAMDI WALKER IS IN THE ROOM AT THIS TIME.
--- NOTE | 2025-09-12 11:00 | NUR ---
INTO SEE PATIENT. DISCUSSED SNF. PATIENT DECLINES. CAREGIVER AT BEDSIDE. STATES THEY ARE GOING TO WORK ON GETTING MORE HOURS FOR THE PATIENT. IMM LETTER COMPLETED. PATIENT WOULD LIKE HOME HEALTH FOR PT. PATIENT CHOICE LETTER GIVEN. [facility] P[facility]ED. NO FUTHER CM NEEDS.
--- NOTE | 2025-09-12 11:04 | NUR ---
PT VISITING WITH CAREGIVER IN ROOM.
--- NOTE | 2025-09-12 13:21 | NUR ---
PT RESTING IN BED WITH EYES OPEN. PT IS FINISHING LUNCH TRAY. CALL LIGHT AND PERSONAL BELONGINGS ARE WITHIN REACH.
--- NOTE | 2025-09-12 14:11 | NUR ---
THIS RN INTO ROOM, PT CALLED FROM DESK REQUESTING ASSISTANCE. PT CALL LIGHT HAD FALLEN OFF HER BED SO SHE COULD NO LONGER REACH IT. THIS RN AND YOSEF-NNAMDI CHANGED ATTENDS, PLACED NEW PUREWICK IN PLACE SHE IS INCONTINENT. PERICARE DONE WITH CROP DUSTER HELPER. LIFTED PT UP IN BED, WARM BLANKET PROVIDED. LUNCH TRAY REMOVED, PT WANTED TO KEEP SNACKS AT BEDSIDE. CALL LIGHT IN PATIENT REAACH AT THIS TIME, BED IN LOWEST POSITION, PT DENIES ANY FURTHER NEEDS AT THIS TIME.
[2025-09-12] MEDS ORDERED: guaiFENesin 600 MG TABCR PO PRN (14:45)
[2025-09-12] MEDS ORDERED: ALBUTEROL SULFATE 0.083% 3 ML VIAL INH PRN (14:45)
[2025-09-12] MEDS ORDERED: BENZONATATE 100 MG CAP PO PRN (14:45)
--- NOTE | 2025-09-12 14:53 | NUR ---
[facility] give to Dr. Montanez.
[2025-09-12] MEDS ORDERED: ALBUTEROL/IPRATROPIUM 3 ML NEB ONE (15:04)
--- NOTE | 2025-09-12 16:23 | EKG ---
[facility] [address] [place] [address] Signed Sinus tachycardia Low voltage QRS Right bundle branch block Abnormal ECG When compared with ECG of 19-DEC-2024 11:21, No significant change was found Confirmed by Arnulfo Ochoa MD () on 09/12/2025 4:23:04 PM Electronically Signed By: ARNULFO OCHOA MD 09/12/25 1623 PATIENT NAME: FABIAN RIOS Electrocardiogram DATE OF : 42 PHYSICIAN: ARNULFO OCHOA MD REPORT #: [id number] REPORT IS CONFIDENTIAL AND NOT TO BE RELEASED WITHOUT AUTHORIZATION
--- NOTE | 2025-09-12 16:35 | NUR ---
RESTAURANT HOURLY MANAGER IN ROOM GETTING BLOOD SUGAR AT THIS TIME, PT RESTING IN BED WITH EYES OPEN. RR EVEN AND UNLABORED
--- NOTE | 2025-09-12 17:32 | NUR ---
PT RESTING IN BED. HOB IS ELEVATED, DINNER TRAY AT BEDSIDE. CALL LIGHT AND PERSONAL BELONGINGS ARE WITHIN REACH.
--- NOTE | 2025-09-12 18:15 | NUR ---
PT RESTING IN BED, VISITING WITH NNAMDI PIÑA IN ROOM. CALL LIGHT AND PERSONAL BELONGINGS ARE WITHIN REACH.
--- NOTE | 2025-09-12 19:35 | NUR ---
RECIEVED REPORT FROM PRECIOUS HOOPER. PT LAYING IN BED, EYES CLOSED, UNLABORED BREATHING. PT PLACED ON .5L O2 NC D/T DE SATS WHEN SLEEPING. CPOX ON AT BEDSIDE, NO NEEDS AT THIS TIME, WHITEBOARD UPDATED, CALL LIGHT WITHIN REACH.
[2025-09-12] MEDS ORDERED: ARFORMOTEROL TARTRATE 15 MCG/2 ML VIAL INH SCH (20:00)
[2025-09-12] MEDS ORDERED: BUDESONIDE 0.5 MG/2 ML VIAL INH SCH (20:00)
[2025-09-12] MEDS ORDERED: ALBUTEROL/IPRATROPIUM 3 ML NEB INH SCH (20:00)
--- NOTE | 2025-09-12 21:10 | NUR ---
VS TAKEN, PT REQUESTS TO BE OFF CPAP FOR THE NIGHT, REMOVED. PTS ASSESSMENT COMPLETE, CURRENTLY ON 1L NC D/T DESATS WHEN SLEEPING. BS TAKEN AND INSULIN GIVEN PER ORDER. NIGHT MED GIVEN PER ORDER. NO OTHER NEEDS AT THIS TIME, CALL LIGTH WITHIN REACH.
--- NOTE | 2025-09-12 22:32 | NUR ---
PT LAYING WITH EYES CLOSED, UNLABORED BREATHING. NO NEEDS REPORTED AT THIS TIME, CALL LIGHT WITHIN REACH.
[2025-09-13] VITALS (12 sets, daily range): BP systolic 109–140; BP diastolic 48–69
--- NOTE | 2025-09-13 00:25 | NUR ---
PT LAYING IN BED, EYES CLOSED, UNLABORED BREATHING. CALL LIGHT WITHIN REACH, PT ON 1L WITH CPOX AT BEDSIDE, SATS SHOWS 92%, CALL LIGHT WITHIN REACH.
--- NOTE | 2025-09-13 02:31 | NUR ---
PT LAYING IN BED, INCONTINENT OF URINE. LINEN CHANGE, DIAPER CHANGE, SKIN CLEANSED, REDNESS NOTED ON JILL AREA, BARRIER CREAM APPLIED. NEW PURWICK PLACED. GRANOLA BAR GIVEN TO PT PER REQUEST. NO OTHER NEEDS AT THIS TIME, CALL LIGHT WITHIN REACH.
--- NOTE | 2025-09-13 02:58 | NUR ---
pt HAS TWO SETS BLOOD CULTURES ORDERED ON 09/09-APPROX 4 HRS APART. FIRST SET WITH RESULTS, SECOND SET SHOW ORDERED AND NOT RECEIVED. PER LAB, SECOND SET WAS A DUPLICATE AND WAS TO BE CANCELLED, CANCELLED BY LAB. CONFIRMED WITH GIULIANO IN LAB SECOND SET WAS NEVER DRAWN. DISCUSSED WITH DR OCHOA MENTIONS IN PROG NOTE, "REPEAT BLOOD CULTURES PENDING". VERBAL ORDER READ BACK TO REPEAT BLOOD CULTURES WITH AM LABS. ORDER PLACED, PRIMARY RN AWARE.
--- NOTE | 2025-09-13 04:09 | NUR ---
PTS CPOX ALARMING, PT ASSESSED, PT DESATS WHEN SLEEPING, 1L NC PLACED. CPOX ON AT BEDSIDE, NO OTHER NEEDS AT THIS TIME, CALL LIGHT WITHIN REACH.
--- NOTE | 2025-09-13 05:09 | NUR ---
PTS CPOX ALARMING, PT ASSESSED, PLACED PT ON 2L NC DUE TO DESAT TO 80% WHEN SLEEPING. PT NOW ON 1L NC D/T WAKING UP FOR VITALS, NO OTHER NEEDS AT THIS TIME, PT REFUSES CPAP, PURWICK CANISTER EMPTIED, CALL LIGHT WITHIN REACH.
[2025-09-13 05:43] LABS: BASOPHILS 0.5 % (0.1-1.2); EOSINOPHILS 0.2 % (0.7-5.8); LYMPHOCYTES 29.0 % (19.3-51.7); MCH 28.9 PG (25.6-32.2); MCHC 31.1 g/dL (32.2-35.5); MCV 93.0 fL (79.4-94.8); MONOCYTES 9.6 % (4.7-12.5); NEUTROPHILS 59.5 % (34.0-71.1); RBC 4.88 M/uL (3.93-5.22)
[2025-09-13 06:12] LABS: ALT (SGPT) 22.0 U/L (14-59); AST (SGOT) 20.0 U/L (15-37); GLOMERULAR FILTRATION RATE,EST 81.0 mL/min (>60); PROTEIN, TOTAL 5.8 g/dL (6.4-8.2); UREA NITROGEN 21.0 mg/dL (7-18)
--- NOTE | 2025-09-13 07:10 | NUR ---
REPORT REC'D FROM ALEX LANG. PT RESTING QUIETLY IN BED. NC IN PLACE AT 2LNC NO ACUTE DISTRESS NOTED. CALL MELENDREZ IN REACH. BED IN LOW POSITION AND LOCKED, SIDERAILS UP X4
--- NOTE | 2025-09-13 10:02 | NUR ---
PATIENT REFUSED TO SHOWER FROM THIS TRUCK LOADER AND UNLOADER AND OT. PRECIOUS MONTOYA NOTIFIED. PATIENT BRUSHED THEIR TEETH, WASHED THEIR FACE, AND USED THE BATHROOM WITH OT.
--- NOTE | 2025-09-13 10:21 | NUR ---
PT REPORTED R SIDED CHEST PAIN AFTER BEING RETURNED TO BED AFTER WORKING WITH OT. PT REPORTS THIS HAPPENS AT HOME. VSS, ENCOURAGED DEEP BREATHING, COUGHING AND USE OF IS. CALL MELENDREZ IN REACH, BED IN LOW POSITION AND LOCKED. SIDERAILS UP X3. PT INSTRUCTED TO CALL FOR ASSISTANCE OR RECURRENCE OF CP
--- NOTE | 2025-09-13 10:31 | NUR ---
INTO SEE PATIENT. PATIENT LIVES AT HOME WITH CAREGIVER ASSISTANCE. STATES HER CAREGIVER WOULD HELP HER GET HOME TOMORROW IF POSSIBLE D/C TOMORROW. NEBS THROUGH [facility]. FAXED PROTABLE OXYGEN ORDER TO [facility].
--- NOTE | 2025-09-13 11:45 | NUR ---
PT RESTING QUIETLY IN BED, NO ACUTE DISTRESS OR C/O VERBALIZED. PT INSTRUCTED TO CALL FOR ASSISTANCE, VERBALIZED UNDERSTANDING. CALL MELENDREZ IN REACH, BED IN LOW POSITION AND LOCKED, SIDERAILS UP X3
--- NOTE | 2025-09-13 13:23 | NUR ---
PATIENT IS IN BED AT THIS TIME, NEWS PHOTOGRAPHER CHARTED VITALS AND I&O'S, CALL LIGHT WITH IN REACH, EMPTIED PUREWICK. NOTHING ELSE NEEDED AT THIS TIME.
--- NOTE | 2025-09-13 14:25 | NUR ---
PT REQUESTING [facility], PT INSTRUCTED THIS WAS NOT POSSIBLE WITH HER 61 GRAM CARB CONSISTENT DIET. OFFERED SUGAR FREE ROMANIAN ICE, PUDDING, JELLO AND APPLESAUCE. PT DECLINED.
--- NOTE | 2025-09-13 18:17 | NUR ---
PT CARED FOR T/O SHIFT WITHOUT INCIDENT. PT OOB TO CHAIR FOR AM AND PM MEAL, TOLERATING PO VERY WELL. PT NEEDS TO BE REMINDED OF CARB INTAKE, ESPECIALLY FOR SNACKS. PT PLEASANT AND COOPERATIVE T/O SHIFT. O2 REMAINS IN PLACE AT 2LNC WITH CPOX AT BEDSIDE. PT NOTED TO HAVE DECREASED SATURATIONS TO MID 80'S WHILE SLEEPING. 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 TRANSFERRED FROM BED TO CHAIR AND BACK WITH NO LOSS OF BALANCE, CGA. PT HAS FEAR OF FALLING AND NEEDS REASSURANCE. PUREWICK REPLACED AT 1800 AND 1 MEDIUM BM TODAY. IV TO R UA REMAINS PATENT. 1+ EDEMA NOTED TO BLE. PT CALL MELENDREZ IN REACH, BED IN LOW POSITION AND LOCKED. SIDERAILS UP X 4 .
--- NOTE | 2025-09-13 19:25 | NUR ---
REPORT RECEIVED FROM PRECIOUS CONTRERAS. PATIENT RESTING WITH EYES CLOSED, RESPIRATIONS EVEN AND UNLABORED. CPOX AT BEDSIDE, RT IN ROOM. NO NEEDS IDENTIFIED, CALL LIGHT IN REACH.
--- NOTE | 2025-09-13 20:58 | NUR ---
ASSESSMENT COMPLETED, SCHEDULED MEDICATIONS GIVEN PER ORDER, PRN MEDICATION GIVEN FOR CONGESTION. PATIENT HAS THICK COUGH, GIVEN ACAPELLA, EDUCATED ON IMPORTANCE OF USE. DR. OCHOA AT BEDSIDE. PATIENT ON TELE #2. PATIENT IS SOB WHILE SPEAKING, OTHERWISE COMFORTABLE. DENIES ANY NEEDS, CALL LIGHT IN REACH
--- NOTE | 2025-09-13 23:18 | NUR ---
ROUNDED ON PATIENT, PATIENT RESTING WITH EYES CLOSED, RESPIRATIONS EVEN AND UNLABORED. CPOX AT BEDSIDE, NO NEEDS IDENTIFIED, CALL LIGHT IN REACH
[2025-09-14] VITALS (7 sets, daily range): BP systolic 103–131; BP diastolic 54–75
--- NOTE | 2025-09-14 00:21 | NUR ---
CALL LIGHT ANSWERED, PATIENT GIVEN SNACKS AND FRESH WATER PER REQUEST. NO OTHER NEEDS, CALL LIGHT IN REACH
--- NOTE | 2025-09-14 02:07 | NUR ---
PATIENT RESTING WITH EYES CLOSED, RESPIRAITONS EVEN AND UNLABORED. CPOX AT BEDSIDE, PURWICK AND BRIEF CHANGED. PERICARE COMPLETED. VS OBTAINED AND RECORDED. INTAKE AND OUTPUT DOCUMENTED. NO OTHER NEEDS, CALL LIGHT IN REACH
--- NOTE | 2025-09-14 03:03 | NUR ---
CALL LIGHT ANSWERED, ASSISTED PATIENT WITH HOB LOWERING. RESPIRATIONS EVEN AND UNLABRED. CPOX AT BEDSIDE, O2 TITRATED DOWN TO 1L. PATIENT DENIES FURTHER NEEDS, CALL LIGHT IN REACH
--- NOTE | 2025-09-14 04:14 | NUR ---
IN ROOM IN RESPONSE FOR PATIENT YELLING OUT FOR HELP, PT REQUESTED HOB RAISE AND FRESH WATER. GIVEN CALL LIGHT BACK WHICH HAD FALLEN, PATIENT DENIES FURTHER NEEDS, CALL LIGHT IN REACH
[2025-09-14 05:23] LABS: BASOPHILS 0.5 % (0.1-1.2); EOSINOPHILS 0.9 % (0.7-5.8); LYMPHOCYTES 32.6 % (19.3-51.7); MCH 28.6 PG (25.6-32.2); MCHC 31.1 g/dL (32.2-35.5); MCV 92.1 fL (79.4-94.8); MONOCYTES 9.6 % (4.7-12.5); NEUTROPHILS 54.2 % (34.0-71.1); RBC 4.96 M/uL (3.93-5.22)
--- NOTE | 2025-09-14 05:28 | NUR ---
VS OBTAINED AND RECORDED, RESPIRATIONS EVEN AND UNLABORED. LUNG SOUNDS CLEAR, SOB WITH EXERTION. CPOX AT BEDSIDE, INTAKE AND OUTPUT DOCUMENTED. PATIENT DENIES ANY NEEDS, CALL LIGHT IN REACH
[2025-09-14 05:52] LABS: ALT (SGPT) 30.0 U/L (14-59); AST (SGOT) 27.0 U/L (15-37); GLOMERULAR FILTRATION RATE,EST 74.0 mL/min (>60); PROTEIN, TOTAL 6.0 g/dL (6.4-8.2); UREA NITROGEN 21.0 mg/dL (7-18)
--- NOTE | 2025-09-14 06:26 | NUR ---
CALL LIGHT ANSWERED, ASSISTED WITH HOB LOWERING. PATIENT DENIES ANY OTHER NEEDS, CALL LIGHT IN REACH. RESPIRATIONS EVEN AND UNLABORED, NC 1L.
--- NOTE | 2025-09-14 07:05 | NUR ---
REPORT REC'D FROM HEIDI Angeles RN. PT RESTING IN BED AT THIS TIME, O2 IN PLACE AT 1LNC, CALL MELENDREZ IN REACH, VERBALIZES NO C/O. SIDERAILS UP X4, CALL MELENDREZ IN REACH, BED IN LOW POSITION AND LOCKED.
--- NOTE | 2025-09-14 08:07 | NUR ---
PT POSITIONED UP IN BED FOR AM MEAL, OFFERED TO GET OOB FOR MEAL, DECLINED. PT REMINDED WILL HAVE SHOWER CARE AFTER AM MEAL, AGAIN STATED " LONG I AM WARM BEFORE I GET OUT OF HERE". PT LEFT WITH CALL MELENDREZ AT BEDSIDE, BED IN LOW POSITION AND LOCKED, SIDERAILS UP X3
--- NOTE | 2025-09-14 11:47 | NUR ---
PT SITTING UP IN CHAIR FOLLOWING SHOWER AND SESSION WITH PT. AWAITING LUNCH TRAY AND WILL RETURN TO BED. CALL MELENDREZ IN REACH, CHAIR LOCKED.
[2025-09-14] MEDS ORDERED: MUCINEX600 MG PO (12:23)
[2025-09-14] MEDS ORDERED: BUDESONIDE0.5 MG/2 M INH (12:28)
--- NOTE | 2025-09-14 12:51 | NUR ---
DC ORDERS NOTED. PT TAKING "A REST" AND THEN WILL CONTACT HER CAREGIVERS TO BUILD A FIRE FOR HEATING AT HER HOUSE AND THEN ARRANGE TRANSPORTATION.
== END 2025-09-14 15:00 | disposition home or self-care (01) | DRG 871 ==
LOC: ED 13:26 → MS 13:27 → CCU 13:27 → MS 09-11 10:45
PROVIDERS: Emergency Medicine; Family Medicine; ADMIT Internal Medicine; ATTEND Internal Medicine
PROC: 3E03329 Introduction of Other Anti-infective into Peripheral Vein, Percutaneous Approach (ICD-10-PCS; principal; 2025-09-09)
PROC: 0T9B70Z Drainage of Bladder with Drainage Device, Via Natural or Artificial Opening (ICD-10-PCS; 2025-09-09)
DX: A41.1 Sepsis due to other specified staphylococcus (principal); J96.21 Acute and chronic respiratory failure with hypoxia; J44.1 Chronic obstructive pulmonary disease with (acute) exacerbation; N39.0 Urinary tract infection, site not specified; E87.20 Acidosis, unspecified; E11.9 Type 2 diabetes mellitus without complications; M19.90 Unspecified osteoarthritis, unspecified site; M81.0 Age-related osteoporosis without current pathological fracture; G47.33 Obstructive sleep apnea (adult) (pediatric); Z99.81 Dependence on supplemental oxygen; A41.89 Other specified sepsis; Z90.49 Acquired absence of other specified parts of digestive tract; F17.200 Nicotine dependence, unspecified, uncomplicated; Z90.710 Acquired absence of both cervix and uterus; Z98.41 Cataract extraction status, right eye; Z98.42 Cataract extraction status, left eye; Z98.890 Other specified postprocedural states; Z90.89 Acquired absence of other organs; Z87.39 Personal history of other diseases of the musculoskeletal system and connective tissue; Z88.2 Allergy status to sulfonamides; Z88.5 Allergy status to narcotic agent; Z88.8 Allergy status to other drugs, medicaments and biological substances; Z79.899 Other long term (current) drug therapy; Z79.01 Long term (current) use of anticoagulants; Z91.198 Patient's noncompliance with other medical treatment and regimen for other reason; Z99.89 Dependence on other enabling machines and devices
CPT/HCPCS: 36415; 71045; 80053; 81001; 82803; 83605; 83735; 84100; 84484; 85025; 86140; 87040; 87088; 93005; 93010; 94640; 94660; 94667; 94668; 94762; 94799; 96366; 96376; 97162; 97166; 97530; 97535; A9270; G0378; J0696; J1815; J2919; J7030; J7512; J7605